=== PATIENT | male | born 1940 | race American Indian/Alaskan Native ===

== ENCOUNTER 2018-04-06 08:26 | Inpatient (IN) | payer MEDICARE ==
--- NOTE | 2018-04-03 19:23 | HP ---
HISTORY AND PHYSICAL: DATE OF ADMISSION: 04/06/18 PROVIDER: Dr. Lashell Caballero.* (DICTATED BY ALVIN NEFF) CHIEF COMPLAINT: Right knee osteoarthritis. HISTORY OF PRESENT ILLNESS: Mr. Mora is an 78-year-old gentleman who has had right knee pain over many years. It has become more chronic and severe over the past 5 to 10 years. He has swelling of the right knee and instability of the right knee. Kneeling and bending cause increased pain. He has attempted treatment with antiinflammatories, physical therapy and intraarticular injections without relief. He would like to undergo a right total knee arthroplasty, scheduled tentatively on 04/06/18. PAST MEDICAL HISTORY: 1. Hypertension. 2. Heart disease. 3. DVT in 2006 of his right leg after a knee scope and cyst removal in [place]. 4. Phlebitis. 5. Non-Hodgkin's lymphoma. 6. Bladder cancer. 7. Hypercholesterolemia. 8. Gout. 9. Osteoarthritis. 10. Type 2 diabetes. 11. Spinal stenosis. 12. Vertigo. 13. Peripheral vascular disease. 14. Carotid artery disease. 15. Coronary artery disease. 16. Anemia. 17. Sleep apnea. PAST SURGICAL HISTORY: 1. CABG in 2009. 2. Lymph node resection of the right groin. 3. Lumbar spine surgery, fused vertebrae L4, L5. 4. Right knee arthroscopy. 5. Left knee arthroscopy. 6. Left total knee arthroplasty. 7. Right toe MTP joint replacement. MEDICATIONS: 1. Nadolol 20 mg. 2. Vitamin E 200 units. 3. Tylenol 3. 4. Metronidazole 1%. 5. Coenzyme Q10. 6. Fish oil. 7. Finasteride 5 mg. 8. Flaxseed oil. 9. Glimepiride 4 mg. 10. Hydroxyzine 25 mg. 11. Ilevro 0.3% eye drops. 12. Invokana 100 mg. 13. Loratadine 10 mg. 14. Nitrostat 0.4 mg. 15. Crestor 10 mg. 16. Aspirin enteric-coated 81 mg. 17. Multi daily vitamins. 18. Senna laxative. 19. Torsemide 10 mg. 20. Vitamin C 1000 mg. 21. Vitamin D high potency 1000 units. 22. Coumadin 3 mg. 23. Victoza 18 mg/3 mL. 24. Meclizine 25 mg. 25. Metformin 500 mg. 26. [place]-3 1000 mg. 27. Vitamin B complex. 28. Clindamycin 150 mg before dentist appointments. 29. Lantus SoloSTAR 100 units/1 mL. 30. Ondansetron 4 mg. 31. Rosuvastatin calcium 10 mg. ALLERGIES: 1. STATINS. 2. PENICILLIN causing a rash. 3. CRESTOR. 4. LIPITOR. 5. ZOCOR. 6. SHELLFISH DERIVED PRODUCTS. 7. IODINE. 8. HYDROCODONE. 9. ERYTHROMYCIN. 10. ACTOS. 11. COMPAZINE. 12. PHENERGAN. 13. TRICOR. 14. ZETIA. FAMILY HISTORY: 1. Diabetes. 2. Heart disease. 3. Hypertension. 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 He lives alone. He does not smoke, drink or utilize recreational drugs. He enjoys walking. He utilizes a cane or rolling walker to walk. He is right- hand dominant. REVIEW OF SYSTEMS: General: The patient denies any fevers, chills or night sweats. No known anesthesia problems. HEENT: The patient denies any headaches , lightheadedness or syncopal episodes. Cardiothoracic: The patient denies any chest pain, heart palpitations or edema. Pulmonary: The patient denies any shortness of breath with exertion, chronic cough. GI: The patient denies any nausea, vomiting, constipation or diarrhea. : The patient denies any nocturia, urinary frequency or urgency. MSK: The patient denies any chronic or intermittent back pain or fractures. Neuro: The patient denies any epilepsy , history of seizure or stroke. The patient admits to numbness and tingling in the fingertips and numbness and tingling of his whole foot bilaterally. Integument: The patient denies any abrasions, lesions, rashes or open sores. PHYSICAL EXAMINATION GENERAL: Alert and oriented x3, appropriate mood and affect, appropriate dress and hygiene, antalgic gait, no acute distress. HEENT: Normocephalic, atraumatic. Hearing and vision are grossly intact. PULMONARY: Lungs are clear to auscultation bilaterally with no wheezes, rales or rhonchi. CARDIO: Regular rate and rhythm. Normal S1 and S2. No appreciable S3 or S4. No murmurs, rubs, or gallops. MSK: Right lower extremity, the patient's skin is intact. No abrasions or open wounds. No palpable masses or lymph nodes. He has moderate effusion about the knee joint. He has varus deformity. Range of motion was about 5 degrees to 100 degrees of flexion with significant patellofemoral crepitus. He has no varus or valgus instability or pain with stressing. He does have tenderness to palpation along the medial and lateral joint line. 5/5 ankle dorsiflexion and plantarflexion strength. Full sensation intact distally with 2 + dorsalis pedis pulse. IMPRESSION: Right knee osteoarthritis. PLAN: To the OR for a right total knee arthroplasty on 04/06/18. The patient will return 10 to 14 days postoperatively for suture removal. He will stop his aspirin 5 days prior and he will be bridged with Lovenox per his primary care and Cardiology. He will resume the day after surgery. ALVIN NEFF [id number]/[facility] #: [id number] ALESSANDRA
[~2018-04-06 08:26] MED LIST: Buffered Lidocaine 0.9% SYRIN* 5 ML/SYR SYRINGE INTRADERM ONE
[2018-04-06] MEDS ORDERED: Clindamycin 900 MG IVPREMIX(* 900 MG/50 ML SDV IV ONE (08:27)
[2018-04-06 09:40] LABS: INR 1.13 (0.77-1.02)
[2018-04-06] MEDS ORDERED: fentaNYL* 50 MCG/ML 2 ML VIAL (100 MCG VIAL) ONE ×5 (09:55→15:56)
[2018-04-06] MEDS ORDERED: Midazolam* 1 MG/ML 2 ML VIAL (2 MG) ONE (09:55)
[2018-04-06] MEDS ORDERED: Bupivacaine 0.25% SDV PF* 10 ML VIAL INJ ONE (10:11)
[2018-04-06] MEDS ORDERED: ROPIVACAINE 5 MG/ML 30 ML BTL (0.5%) ONE (10:45)
[2018-04-06] MEDS ORDERED: Propofol* 10 MG/ML 20 ML BTL IV PUSH ONE (12:08)
[2018-04-06] MEDS ORDERED: Cisatracurium* 2 MG/ML MDV 5 ML ONE (12:08)
[2018-04-06] MEDS ORDERED: Famotidine IV* 10 MG/ML 2 ML (20 mg) ONE (12:08)
[2018-04-06] MEDS ORDERED: Dexamethasone IV* 4 MG/ML 1 ML (4 MG) ONE (12:08)
[2018-04-06] MEDS ORDERED: Ondansetron INJ* 2 MG/ML VIAL ONE (12:08)
[2018-04-06] MEDS ORDERED: Scopolamine 1.5 mg* PATCH TRANSDERM PRN (12:27)
[2018-04-06] MEDS ORDERED: Naloxone* 0.4 MG/ML 1 ML VIAL IV PRN (12:27)
[2018-04-06] MEDS ORDERED: Metoclopramide IV* 5 MG/ML 2 ML VIAL IV PRN (12:27)
[2018-04-06] MEDS ORDERED: Acetaminophen IV 1GM/100ML * 1,000 MG/100 ML VIAL IVPB ONE (12:27)
[2018-04-06] MEDS ORDERED: Nalbuphine* 10 MG/ML 1 ML VIAL IV PRN (12:27)
[2018-04-06] MEDS ORDERED: Ondansetron INJ* 2 MG/ML VIAL IV PRN (12:27)
[2018-04-06] MEDS ORDERED: diPHENhydraMINE IV* 50 MG/ML 1 ml VIAL (BENADRYL) IV PRN ×2 (12:27→14:44)
[2018-04-06] MEDS ORDERED: DiMENhydriNATE IV* 50 MG/ML VIAL IV PUSH PRN (12:27)
[2018-04-06] MEDS ORDERED: Acetaminophen IV 1GM/100ML * 100 ML ONE (14:15)
[2018-04-06] MEDS ORDERED: Magnesium Hydroxide LIQ* 30 ML UDC PO PRN (14:44)
[2018-04-06] MEDS ORDERED: Polyethylene Glycol 3350* 17 GM PACKET PO PRN (14:44)
[2018-04-06] MEDS ORDERED: Bisacodyl SUPP* 10 MG SUPP PR PRN (14:44)
[2018-04-06] MEDS ORDERED: Morphine INJ* 2 MG/ML 1 ML CARPUJECT IV PRN (14:44)
[2018-04-06] MEDS ORDERED: Ondansetron TAB* 4 MG PO PRN (14:44)
[2018-04-06] MEDS ORDERED: Nitroglycerin TAB 0.4 MG* 0.4 MG TAB SL PRN (14:49)
[2018-04-06] MEDS ORDERED: Meclizine TAB* 12.5 MG PO PRN (14:49)
[2018-04-06] MEDS: fentaNYL* 50 MCG/ML 2 ML VIAL (100 MCG VIAL) IV PRN ×8 (15:01→16:26)
[2018-04-06] MEDS ORDERED: oxyCODONE TAB* 5 MG TAB ONE (15:17)
[2018-04-06] MEDS: oxyCODONE TAB* 5 MG TAB PO PRN ×2 (15:18→20:28)
--- NOTE | 2018-04-06 15:43 | RAD ---
Indication: Left knee arthroplasty 2 views of left knee demonstrates bipolar left knee arthroplasty in satisfactory position. IMPRESSION: Left knee bipolar arthroplasty in satisfactory position
[2018-04-06] MEDS ORDERED: Canagliflozin (NF) 100 MG TAB PO SCH (16:30)
[2018-04-06] MEDS ORDERED: Morphine VIAL* 10 MG/ML 1 ML VIAL ONE (16:43)
[2018-04-06] MEDS ORDERED: Warfarin TAB(*) 6 MG PO ONE (17:00)
[2018-04-06] MEDS ORDERED: Morphine VIAL* 4 MG/ML VIAL (1 ml vial) IV PRN (18:06)
[2018-04-06] MEDS ORDERED: oxyCODONE/Acetamin 5/325 MG* TAB ONE (18:10)
[2018-04-06] MEDS: oxyCODONE/Acetamin 5/325 MG* TAB PO PRN ×2 (18:17→22:18)
[2018-04-06] MEDS: Cetirizine* 10 MG TAB PO SCH (18:33)
[2018-04-06] MEDS: Nadolol TAB* 40 MG PO SCH (20:10)
[2018-04-06] MEDS: Clindamycin 600 MG IVPREMIX(* 600 MG/50 ML SDV IV SCH (20:14)
[2018-04-06] MEDS: Docusate CAP* 100 MG PO SCH (20:28)
[2018-04-06] MEDS: Cyclobenzaprine TAB* 10 MG PO PRN (20:30)
[2018-04-06] MEDS: Magnesium Hydroxide LIQ* 30 ML UDC PO SCH (20:33)
[2018-04-06] MEDS: Insulin GLARGINE(*) 1 UNITS UNIT SUBCUT SCH (20:34)
[2018-04-06] MEDS ORDERED: Glimepiride (NF) 2 MG TAB PO SCH (21:00)
[2018-04-06] MEDS ORDERED: metFORMIN* 500 MG TAB PO SCH (21:00)
--- NOTE | 2018-04-06 21:07 | CONS ---
[facility] MEDICINE CONSULTATION REPORT: DATE OF CONSULTATION: 04/06/18 ATTENDING PHYSICIAN: Lashell Caballero MD CONSULTING PHYSICIAN: Tim Haile MD * (dictation provided by Trinh Paige NP) REASON FOR CONSULTATION: Medical comanagement in the patient admitted for right total knee replacement. HISTORY OF PRESENT ILLNESS: Mr. Mora is an 78-year-old male with a past medical history of coronary artery disease with CABG and stenting, cardiomyopathy, anemia with history of lymphoma, and bladder cancer who presents today to the hospital for a planned right total knee arthroplasty. Mr. Mora states that he was feeling his normal state of health before he came in to surgery today. He denies any recent chest pain, shortness of breath , nausea, vomiting, diarrhea, abdominal pain. He states that he is not very active, but his activity is limited by orthopedic pain and not chest pain. He was evaluated preoperatively by Pulmonology, Cardiology, and his primary care provider and all deemed him appropriate to proceed for surgery. The patient has been attempting to medically manage his chronic right knee pain, but when this was unsuccessful, he has now decided to go for operative intervention with Dr. Caballero today. PAST MEDICAL HISTORY: 1. Hypertension. 2. Coronary artery disease with CABG and stent placement. 3. History of DVT in 2006 of the right leg after a knee arthroscopy and cyst removal, chronically on Coumadin therapy. 4. Non-Hodgkin's lymphoma. 5. Bladder cancer. 6. Hypercholesterolemia. 7. Gout. 8. Arthritis. 9. Type 2 diabetes. 10. Spinal stenosis. 11. Vertigo. 12. Peripheral vascular disease. 13. Carotid artery disease. 14. Anemia. 15. Sleep apnea. PAST SURGICAL HISTORY: 1. CABG in 2009. 2. Lymph node resection of the right groin. 3. Lumbar spine surgery with fused vertebrae L4-L5. 4. Right knee arthroscopy. 5. Left knee arthroscopy. 6. Left total knee arthroplasty. 7. Right toe MTP joint replacement. MEDICATIONS: 1. Metronidazole 1 application topically daily. 2. Metformin 500 mg p.o. b.i.d. 3. Warfarin 4.5 mg p.o. daily. 4. Vitamin E cap 200 units p.o. q.p.m. 5. Vitamin B complex 1 cap p.o. q.p.m. 6. Coenzyme Q10 of 100 mg p.o. q.p.m. 7. Torsemide 10 mg p.o. q.a.m. 8. Senna 8.6 mg p.o. q.a.m. 9. Rosuvastatin 10 mg p.o. Tuesday, Tuesday, Tuesday. 10. Ondansetron 4 mg p.o. q.6 hours p.r.n. 11. [place]-3 fatty acid 1 cap p.o. q.p.m. 12. Nitroglycerin p.r.n. 13. Nadolol 20 mg p.o. q.p.m. 14. Multivitamin 1 cap p.o. q.a.m. 15. Meclizine 25 mg p.o. q.8 hours p.r.n. 16. Loratadine 10 mg p.o. q.p.m. 17. Victoza 1.8 mg subcutaneously q.a.m. 18. Lantus insulin 15 units subcutaneously at bedtime. 19. Glimepiride 4 mg p.o. b.i.d. 20. Flaxseed oil 1 cap p.o. q.p.m. 21. Finasteride 5 mg p.o. q.a.m. 22. Clindamycin 150 mg p.o. daily p.r.n. 23. Cholecalciferol vitamin 1000 units p.o. q.p.m. 24. Invokana 100 mg p.o. q.a.c. 25. Aspirin 1 tab p.o. at bedtime 81 mg. 26. Ascorbic acid 1000 mg p.o. q.a.m. 27. Tylenol with Codeine 1 tab p.o. q.6 hours p.r.n. ALLERGIES: To PENICILLINS, COMPAZINE, LIPITOR, ERYTHROMYCIN, IODINE, PIOGLITAZONE, PROMETHAZINE, SHELLFISH, ZETIA, FENOFIBRATE, HYDROCODONE, SIMVASTATIN, and CONTRAST DYE. FAMILY HISTORY: There is report of diabetes, heart disease, and hypertension. SOCIAL HISTORY: The patient lives alone. He states his son, Faizan, would be his healthcare proxy. There is no report of alcohol, tobacco, or drug use. REVIEW OF SYSTEMS: A 14-point review of systems was completed with Mr. Mora and all those not mentioned above were negative. PHYSICAL EXAMINATION: Vitals: Temperature 97.0, pulse rate 66, respiratory rate 14, O2 saturation 99% on room air, blood pressure 167/86. General: Mr. Mora is lying in the bed in no acute distress in the postanesthesia care unit. Neuro: He is alert. He is oriented x3. He moves all extremities equally. There is no facial asymmetry or focal weakness. Extraocular movements are intact. Heart: S1, S2. No murmur, rub, or gallop and regular. Lungs are clear to auscultation bilaterally with no accessory muscle use and good aeration. The abdomen is soft and nontender with bowel sounds positive x3. Extremities: No cyanosis or edema. Skin is intact. Right knee incision not assessed in the immediate postoperative period. LABORATORY DATA: On 03/24/18, WBC 5.4, hemoglobin 14.6, hematocrit 44, platelet count 270,000. Sodium 136, potassium 4.0, chloride 105, serum bicarbonate 25, BUN 18, creatinine 1.10, glucose 98. ASSESSMENT: Mr. Mora is an 78-year-old male with a past medical history of coronary artery disease with CABG and stent placement, history of non-Hodgkin's lymphoma, and [id number] diabetes as well as right lower extremity deep venous thrombosis, on chronic Coumadin therapy, who presents today to the hospital for a planned right total knee arthroplasty with Dr. Caballero. RECOMMENDATIONS: As follows: 1. Postop day #0 status post right total knee arthroplasty: Management will continue to be per orthopedic services. The patient will have pain medication p.r.n. with a bowel regimen. He will have physical and occupational therapy. We will monitor H and H closely. 2. History of deep venous thrombosis, on chronic warfarin therapy. Patient's prior DVT was provoked in the setting of a prior R knee procedure. The patient was recommended to have lovenox 40mg sq daily for DVT prophylaxis per his primary care physician, Dr. Pelayo, and then transitioned back over to warfarin. 3. Type 2 diabetes. Plan to hold metformin, glimepiride, and Victoza. The patient will continue on his home Lantus at 15 units at bedtime. We will adjust as needed once he is taking oral intake regularly. We will check blood glucoses q.a.c. 4. Hypertension. Continue nadolol. Continue torsemide. This patient's blood pressure has been running 170s systolically postoperatively thus far. 5. Hypercholesterolemia. The patient will have rosuvastatin held as it is non- formulary. 6. DVT prophylaxis with Lovenox and warfarin. We will review dosing with orthopedic services. 7. Code status is full code. 8. Disposition is short-stay surgical. TIME SPENT: Approximately 60 minutes were spent in the consultation of this patient with more than half the time was spent with the patient at the bedside reviewing the events leading up to this hospitalization, performing the physical examination, and reviewing my plan of care. TRINH PAIGE NP [id number]/[facility] #: [id number] ALESSANDRA
[2018-04-07] MEDS: oxyCODONE TAB* 5 MG TAB PO PRN ×4 (00:47→23:12)
[2018-04-07] MEDS: oxyCODONE/Acetamin 5/325 MG* TAB PO PRN ×2 (04:31→08:36)
[2018-04-07] MEDS: Clindamycin 600 MG IVPREMIX(* 600 MG/50 ML SDV IV SCH ×2 (04:34→12:06)
--- NOTE | 2018-04-07 04:47 | OP ---
DATE OF OPERATION: 04/06/18 - ROOM #348 DATE OF : 36 SURGEON: Lashell Caballero MD FOREMAN/PILE DRIVING AND ERECTION: ALVIN Rivas. Ms. Hawley did help throughout the procedure with preparation of the leg, wound retraction, manipulation of the knee, and wound closure. ANESTHESIOLOGIST: Dr. Stanton. ANESTHESIA: General. PRE-OP DIAGNOSIS: Severe end-stage degenerative osteoarthritis of the right knee joint. POST-OP DIAGNOSIS: Severe end-stage degenerative osteoarthritis of the right knee joint. OPERATIVE PROCEDURE: Right total knee arthroplasty. TOURNIQUET TIME: 59 minutes. COMPLICATIONS: None. SPECIMENS: Bone and cartilage of the right knee joint sent to Pathology. HARDWARE USED: This is [employer] cemented total knee arthroplasty hardware. For the femur, a right size 7 posterior stabilized Legion femoral component. For the tibia, a size 6 Sivan II right tibial base plate. For the insert, a 9 mm posterior stabilized articular insert Sivan II size 5/6 and for the patella, a 35 mm 3-peg all poly patella with 7.5 thickness. Two packages of Simplex bone cement were used. BRIEF HISTORY/INDICATIONS: Mr. Mora is an 78-year-old gentleman with years of increasingly severe right knee pain and stiffness. He failed conservative treatment with anti-inflammatories, pain medication, intra-articular injections and physical therapy. Due to continued pain and decreased quality of life, he elected to undergo right total knee arthroplasty. Informed consent was obtained from the patient. He understood the risks of surgery included, but were not limited to bleeding, infection, damage to nearby structures, continued pain, need for further surgery, intraoperative fracture, nerve palsy, hardware failure or loosening, knee stiffness, loss of motion, stroke, heart attack, blood clot, and . He wished to proceed. INTRAOPERATIVE FINDINGS: Intraoperatively, the patient was noted to have flexion contracture at 25 degrees. He had severe end-stage arthritis with extreme deformation and loss of bone along the proximal tibia. He had extensive osteophyte formation with tricompartmental full thickness cartilage. DESCRIPTION OF PROCEDURE: Mr. Mora was identified in the preanesthesia unit. His right side was marked as the correct operative side. Informed consent was signed and placed in the chart. The patient was taken to the operating room and placed under general anesthesia. A Loomis catheter was placed. Right lower extremity was prepped and draped in the usual sterile fashion. Preop time-out was made to correctly identify the patient's side and site. Appropriate preoperative antibiotics were given within 1 hour of incision. Tourniquet was inflated and total tourniquet time for this procedure was 59 minutes. A midline incision was made with a 10 blade and carried down to the extensor mechanism. A new 10-blade was used to make a standard medial parapatellar arthrotomy. The patella was subluxed laterally. Osteophytes were noted and removed. Electrocautery was used to subperiosteally elevate soft tissue off the superomedial tibia to the mid sagittal plane. There was a significant amount of contracture along the medial tibial plateau and this was carefully released with electrocautery. There was extensive osteophyte formation, which was removed with rongeur. The knee was flexed up. The anterior horn of the lateral meniscus was released. There was no ACL. A drill was used to enter the distal femur. Intramedullary distal femoral cutting guide was pinned on the distal femur. An extra 2 mm of bone was removed using the oscillating saw. This was due to the severe flexion contracture to increase the extension space. Next, the external rotation guide was pinned on the distal femur. The distal femur was sized to a size 7. Size 7 multi-cutting jig was pinned on the distal femur. Oscillating saw was used to make the appropriate 4 chamfer cuts. The bone was carefully removed. The PCL was completely released and the tibia was subluxed anteriorly. Extramedullary tibial cutting guide was pinned on the proximal tibia. A 9 mm of proximal tibial bone was carefully removed using an oscillating saw. The bone was carefully removed. The knee was brought out into full extension. The knee was tight in extension. A large amount of capsular release was performed using electrocautery along the posterior capsule and medial compartment. Knee extension was improved. The knee was flexed up. The laminar film technician was placed both medially and laterally. Any remaining meniscus was carefully removed using electrocautery. Any remaining PCL was removed using electro- cautery. Posterior osteophytes were removed using a curved osteotome and curette. Tibial tray and drop helene were placed and confirmed a satisfactory tibial cut. The flexion and extension gaps were well balanced. The knee was once again brought out into full extension. A Spacer block fit with the knee in full extension. The medial and lateral ligaments were well balanced. A size 7 right femoral trial was impacted onto the distal femur and had good fit. The box for the posterior stabilized implant was prepared using a reamer and box cut osteotome. A size 6 tibial tray trial with a 9 mm insert trial was placed and the knee was taken through a range of motion. The knee had full extension to 130 degrees of flexion with satisfactory patellofemoral tracking. The patella was everted. An 8 mm of patellar bone and cartilage was carefully removed using an oscillating saw. Patella was sized to a size 35. Three peg holes were drilled through the size 35 guide. A 35 trial patella with 7.5 thickness was chosen and the knee was taken through a range of motion. There was satisfactory patellofemoral tracking. All trials were carefully removed. The tibia was subluxed anteriorly and sized to a size 6. Proximal tibia was prepared using a size 6 keel punch. All bony cut surfaces were copiously irrigated with sterile saline and dried. Final implants were cemented into place starting with the tibia followed by the femur and last the patella. A 9-mm insert trial was placed while the knee was brought out into full extension. Tourniquet was turned down at 59 minutes. The knee was copiously irrigated with sterile saline. Electrocautery was used to obtain meticulous hemostasis. Once the cement had fully cured, the insert trial was removed. Any excess cement was removed from around the capsule and hardware. Final insert chosen was a 9-mm posterior stabilized articular insert size 5/6. This was locked into position on the tibial tray without difficulty. Stability of the insert was checked and rechecked and noted to be stable. The knee was copiously irrigated with sterile saline. The extensor mechanism was closed using #1 Vicryls. The rest of the incision was closed in a layered fashion using 0 and 2-0 Vicryls. Skin was closed using running 3-0 nylon suture. Sterile Xeroform, 4x4s and Webril were used to cover the incision. Kanu wrap and cold pack were placed over this. The patient's anesthesia was reversed without difficulty. He was taken to the PACU in stable condition. Intended weightbearing will be weightbearing as tolerated. Intended DVT prophylaxis will be Coumadin with a Lovenox bridge. [id number]/[facility] #: [id number] [facility] HOSPITALBiju
[2018-04-07 05:51] LABS: Hematocrit 35 % (42-52); Hemoglobin 11.9 g/dl (14.0-18.0); Platelet Count 216 10^3/ul (150-450)
[2018-04-07 06:05] LABS: EGFR Non-African American 72.7 (>60)
[2018-04-07 07:08] LABS: INR 1.27 (0.77-1.02)
[2018-04-07] MEDS: Docusate CAP* 100 MG PO SCH ×2 (08:36→21:03)
[2018-04-07] MEDS: Torsemide TAB* 20 MG PO SCH (08:37)
[2018-04-07] MEDS: Finasteride TAB* 5 MG PO SCH (08:37)
[2018-04-07] MEDS: Magnesium Hydroxide LIQ* 30 ML UDC PO SCH ×2 (08:38→21:02)
[2018-04-07] MEDS ORDERED: Liraglutide (NF) 18 MG/3 ML SUBCUT SCH (09:00)
--- NOTE | 2018-04-07 09:00 | PN ---
Progress Note - Progress Note Date of Service: 04/07/18 SOAP: Subjective: Pt is doing well. Pain is controlled in knee. He has pain in ankle, hip and back from prior back surgery. Denies calf pain, CP/SOB or F/C. Has RLE edema but has a h/o lymph dissection in right groin. Objective: PE- 78 y/o WDWM NAD A&O x 3 RLE- dressing c/d/i, +DF/PF ankle, calf soft NT, +2 DP pulse, SILT distally Vital Signs Temp Pulse Resp BP Pulse Ox 98.7 F 68 18 112/49 100 04/07/18 07:36 04/07/18 07:36 04/07/18 08:39 04/07/18 07:36 04/07/18 07:36 Laboratory Results - last 24 hr 04/06/18 04/06/18 04/06/18 09:23 09:46 14:59 Hgb Hct Plt Count MPV INR (Anticoag Therapy) 1.13 H Sodium Potassium Chloride Carbon Dioxide Anion Gap BUN Creatinine Est GFR ( Amer) Est GFR (Non-Af Amer) BUN/Creatinine Ratio Glucose POC Glucose (mg/dL) 117 H 140 H Calcium 04/06/18 04/07/18 04/07/18 18:07 05:28 05:28 Hgb 11.9 L Hct 35 L Plt Count 216 MPV 8.0 INR (Anticoag Therapy) Sodium 133 L Potassium 4.6 Chloride 101 Carbon Dioxide 26 Anion Gap 6 BUN 21 Creatinine 0.99 Est GFR ( Amer) 88.0 Est GFR (Non-Af Amer) 72.7 BUN/Creatinine Ratio 21.2 H Glucose 231 H POC Glucose (mg/dL) 171 H Calcium 8.3 L 04/07/18 04/07/18 06:49 07:46 Hgb Hct Plt Count MPV INR (Anticoag Therapy) 1.27 H Sodium Potassium Chloride Carbon Dioxide Anion Gap BUN Creatinine Est GFR ( Amer) Est GFR (Non-Af Amer) BUN/Creatinine Ratio Glucose POC Glucose (mg/dL) 226 H Calcium Assessment: POD 1 S/P Right TKA Plan: WBAT- PT/OT cont lovenox and coumadin- 8 mg tonight Cont pain mgmt DC plan to PMRU Tuesday vs [place] tuesday, tool planner aware
[2018-04-07] MEDS ORDERED: Dextrose 50% Syringe 50 ML* 25 GM/50 ML SYRINGE IV PUSH PRN (09:23)
[2018-04-07] MEDS: Artificial Tears* 15 ML BTL RIGHT EYE PRN ×2 (10:38→21:01)
[2018-04-07] MEDS: Insulin LISPRO* 1 UNITS UNIT SUBCUT SCH ×2 (12:05→18:16)
[2018-04-07] MEDS: Enoxaparin(*) 40 MG/0.4 ML SYR SUBCUT SCH (12:06)
--- NOTE | 2018-04-07 14:29 | PN ---
Subjective Date of Service: 04/07/18 Interval History: Patient states that he ahd been having severe spasming pain in leg from lower back to calf before PT and that after PT he had no pain at rest. Denies CP, SOB , N/V, abdominal pain, F/C, or other pain. States that he gets lightheaded on standing frequently and that it always passes after several seconds. States that Meclizine is prescribed but is unable to say if it helps. Patient has not urinated after his rotiz removal and has not passed flatus. Family History: Unchanged from Admission Social History: Unchanged from Admission Past Medical History: Unchanged from Admission Objective Active Medications: Acetaminophen (Tylenol Tab*) 650 mg PO Q4H PRN PRN Reason: PAIN OR TEMPERATURE Bisacodyl (Dulcolax Supp*) 10 mg [place] DAILY PRN PRN Reason: constipation Cetirizine HCl (Zyrtec*) 10 mg PO QPM [facility] Last Admin: 04/06/18 18:33 Dose: 10 mg Cyclobenzaprine HCl (Flexeril Tab*) 10 mg PO TID PRN PRN Reason: SPASMS Last Admin: 04/06/18 20:30 Dose: 10 mg Dextrose (D50w Syringe 50 Ml*) 12.5 gm IV PUSH .FOR FS < 60 - SS PRN PRN Reason: FS < 60 Diphenhydramine HCl (Benadryl Iv*) 12.5 mg IV Q6H PRN PRN Reason: PRURITIS Docusate Sodium (Colace Cap*) 100 mg PO BID [facility] Last Admin: 04/07/18 08:36 Dose: 100 mg Enoxaparin Sodium (Lovenox(*)) 40 mg SUBCUT Q24H [facility] Last Admin: 04/07/18 12:06 Dose: 40 mg Finasteride (Proscar Tab*) 5 mg PO QAM [facility] Last Admin: 04/07/18 08:37 Dose: 5 mg Lactated Ringer's (Lactated Ringers 1000 Ml Bag*) 1,000 mls @ 100 mls/hr IV PER RATE [facility] Last Admin: 04/07/18 04:34 Dose: 100 mls/hr Insulin Glargine (Lantus(*)) 15 units SUBCUT BEDTIME [facility] Last Admin: 04/06/18 20:34 Dose: 15 units Insulin Human Lispro (Humalog*) 0 units SUBCUT [facility]; Protocol Last Admin: 04/07/18 12:05 Dose: 2 units Lactulose (Lactulose*) 30 ml PO Q6H PRN PRN Reason: constipation Magnesium Hydroxide (Milk Of Magnesia Liq*) 30 ml PO BID [facility] Last Admin: 04/07/18 08:38 Dose: 30 ml Magnesium Hydroxide (Milk Of Magnesia Liq*) 30 ml PO Q6H PRN PRN Reason: constipation Meclizine HCl (Antivert Tab*) 25 mg PO Q8HR PRN PRN Reason: DIZZINESS Morphine Sulfate (Morphine Vial*) 2 mg IV Q2H PRN PRN Reason: PAIN Last Admin: 04/06/18 23:50 Dose: 2 mg Nadolol (Corgard Tab*) 20 mg PO QPM [facility] Last Admin: 04/06/18 20:10 Dose: 20 mg Nitroglycerin (Nitroglycerin Tab 0.4 Mg*) 0.4 mg SL Q5M PRN PRN Reason: ANGINA Ondansetron HCl (Zofran Odt Tab*) 4 mg PO Q6H PRN PRN Reason: NAUSEA Ondansetron HCl (Zofran Tab*) 4 mg PO Q6H PRN PRN Reason: NAUSEA Oxycodone HCl (Roxycodone Tab*) 10 mg PO Q4H PRN PRN Reason: SEVERE PAIN Last Admin: 04/07/18 12:07 Dose: 10 mg Oxycodone/Acetaminophen (Percocet 5/325 Tab*) 2 tab PO Q4H PRN PRN Reason: PAIN Last Admin: 04/07/18 08:36 Dose: 2 tab Oxycodone/Acetaminophen (Percocet 5/325 Tab*) 1 tab PO Q4H PRN PRN Reason: PAIN Polyethylene Glycol/Electrolytes (Miralax*) 17 gm PO DAILY PRN PRN Reason: Constipation Polyvinyl Alcohol (Polyvinyl Alcohol 1.4% Opth*) 1 drop RIGHT EYE Q2H PRN PRN Reason: DRY EYE Last Admin: 04/07/18 10:38 Dose: 1 drop Torsemide (Demadex*) 10 mg PO QAM [facility] Last Admin: 04/07/18 08:37 Dose: 10 mg Warfarin Sodium (Coumadin Tab(*)) 8 mg PO ONCE@1700 ONE; Protocol Stop: 04/07/18 17:01 Vital Signs - 8 hr 04/07/18 04/07/18 04/07/18 07:36 08:00 08:36 Temperature 98.7 F Pulse Rate 68 Respiratory 14 18 18 Rate Blood Pressure 112/49 (mmHg) O2 Sat by Pulse 100 100 Oximetry 04/07/18 04/07/18 04/07/18 08:39 11:35 11:53 Temperature 97.5 F Pulse Rate 62 Respiratory 18 16 18 Rate Blood Pressure 131/56 (mmHg) O2 Sat by Pulse 100 Oximetry 04/07/18 12:07 Temperature Pulse Rate Respiratory 18 Rate Blood Pressure (mmHg) O2 Sat by Pulse Oximetry Oxygen Devices in Use Now: Nasal Cannula Appearance: Patient is an 78yo male who appears stated age and is sitting in the bed in NAD. Eyes: No Scleral Icterus, PERRLA Ears/Nose/Mouth/Throat: NL Teeth, Lips, Gums, Clear Oropharnyx, Mucous Membranes Moist Neck: NL Appearance and Movements; NL JVP, Trachea Midline Respiratory: Symmetrical Chest Expansion and Respiratory Effort, Clear to Auscultation Cardiovascular: NL Sounds; No Murmurs; No JVD, RRR, No Edema Abdominal: NL Sounds; No Tenderness; No Distention, No Hepatosplenomegaly Lymphatic: No Cervical Adenopathy Extremities: No Clubbing, Cyanosis, - - RLE edema. Right knee covered with bulky dressing. Skin: No Nodules or Sclerosis Neurological: Alert and Oriented x 3, NL Sensation, NL Muscle Strength and Tone , - - CN II-XII intact. Result Diagrams: 04/07/18 05:28 04/07/18 05:28 Assess/Plan/Problems-Billing Assessment: Patient is an 78yo male with a PMH for CABG, Bladder CA, Lymphoma, Provoked DVT , DM II, who is S/P RTKA and is doing well. - Patient Problems (1) Post-operative state Current Visit: Yes Status: Acute Code(s): Z98.890 - OTHER SPECIFIED POSTPROCEDURAL STATES SNOMED Code(s): 29815588 Comment: Management per primary team. Pain well controlled. PT/OT. Continue with Bowel regimen. Awaiting spontaneous urination. Monitor H/H. (2) History of bladder cancer Current Visit: Yes Status: Acute Code(s): Z85.51 - PERSONAL HISTORY OF MALIGNANT NEOPLASM OF BLADDER SNOMED Code(s): 038635171 (3) Type II diabetes mellitus Current Visit: No Status: Acute Comment: Home glargine and SSI. Resume home medications at discharge. (4) History of lymphoma Current Visit: Yes Status: Acute Code(s): Z85.79 - PRSNL HX OF MALIG NEOPLM OF LYMPHOID, HEMATPOETC & REL TISS SNOMED Code(s): 303007929 Comment: S/P Inguninal LN dissection. Right LE edema. (5) Vertigo Current Visit: Yes Status: Acute Code(s): R42 - DIZZINESS AND GIDDINESS SNOMED Code(s): 459873724 Comment: Does not describe vertiginous symptoms. Possibly Orthostatic hypotension. Watch closely with position symptoms. (6) PVD (peripheral vascular disease) Current Visit: Yes Status: Acute Code(s): I73.9 - PERIPHERAL VASCULAR DISEASE, UNSPECIFIED SNOMED Code(s): 533694993 Comment: Stable, continue statin and antithrombotics. Good pulse in RLE. (7) CAD (coronary artery disease) Current Visit: No Status: Acute Code(s): I25.10 - ATHSCL HEART DISEASE OF [place] CORONARY ARTERY W/O ANG PCTRS SNOMED Code(s): 69929488 Comment: Stable- no complaints. Continue ASA, crestor, and carvedilol. (8) HTN (hypertension) Current Visit: No Status: Acute Code(s): I10 - ESSENTIAL (PRIMARY) HYPERTENSION SNOMED Code(s): 27851400 Comment: Normotensive. Continue Home medications. (9) DVT prophylaxis Current Visit: No Status: Acute Code(s): BGQ8491 - SNOMED Code(s): 385213636 Comment: Lovenox to Coumadin On Coumadin Chronically (10) Full code status Current Visit: No Status: Acute Code(s): Z78.9 - OTHER SPECIFIED HEALTH STATUS SNOMED Code(s): 797370697 Status and Disposition: Inpatient. Disposition per primary team.
[2018-04-07] MEDS ORDERED: ROSUVASTATIN CALCIUM 10 MG PO SCH (14:49)
[2018-04-07] MEDS: Ondansetron ODT TAB* 4 MG PO PRN ×2 (16:31→23:11)
[2018-04-07] MEDS: Cyclobenzaprine TAB* 10 MG PO PRN (16:45)
[2018-04-07] MEDS ORDERED: Warfarin TAB(*) 4 MG PO ONE (17:00)
[2018-04-07] MEDS: Nadolol TAB* 40 MG PO SCH (18:17)
[2018-04-07] MEDS: Cetirizine* 10 MG TAB PO SCH (18:17)
[2018-04-07] MEDS: Insulin GLARGINE(*) 1 UNITS UNIT SUBCUT SCH (21:03)
[2018-04-07] MEDS: Aspirin EC TAB* 81 MG TAB.EC PO SCH (21:03)
[2018-04-07] MEDS: Acetaminophen TAB* 325 MG PO PRN (21:03)
[2018-04-08] MEDS: Cyclobenzaprine TAB* 10 MG PO PRN ×2 (04:24→12:45)
[2018-04-08 05:30] LABS: Hematocrit 34 % (42-52); Hemoglobin 11.6 g/dl (14.0-18.0); Mean Platelet Volume 8.1 um3 (7.4-10.4); Platelet Count 209 10^3/ul (150-450)
[2018-04-08 05:35] LABS: INR 2.1 (0.77-1.02)
[2018-04-08] MEDS: oxyCODONE/Acetamin 5/325 MG* TAB PO PRN (06:17)
[2018-04-08] MEDS: oxyCODONE TAB* 5 MG TAB PO PRN (09:19)
[2018-04-08] MEDS: Torsemide TAB* 20 MG PO SCH (09:19)
[2018-04-08] MEDS: Docusate CAP* 100 MG PO SCH ×2 (09:20→22:13)
[2018-04-08] MEDS: Finasteride TAB* 5 MG PO SCH (09:20)
[2018-04-08] MEDS: Insulin LISPRO* 1 UNITS UNIT SUBCUT SCH ×3 (09:20→17:44)
[2018-04-08] MEDS: Magnesium Hydroxide LIQ* 30 ML UDC PO SCH ×2 (09:21→21:31)
--- NOTE | 2018-04-08 10:07 | PN ---
Progress Note - Progress Note Date of Service: 04/08/18 SOAP: Subjective: Pt is doing well. He has pain in the kneecap. Denies calf pain, CP/SOB or F/C. Has RLE edema but has a h/o lymph dissection in right groin. Objective: PE- 78 y/o WDWM NAD A&O x 3 RLE- dressing changed today, incision is c/d/i, no erythema or drainage seen, + DF/PF ankle, calf soft NT, +2 DP pulse, SILT distally Vital Signs Temp 98.4 F 04/08/18 07:47 Pulse 68 04/08/18 07:47 Resp 18 04/08/18 09:21 BP 130/58 04/08/18 07:47 Pulse Ox 94 04/08/18 08:00 Intake & Output 04/07/18 04/08/18 04/08/18 18:59 06:59 18:59 Intake Total 1371 240 200 Output Total 275 200 400 Balance 1096 40 -200 Intake: IV Fluids 664 LR 664 IVPB 107 ABX - CLINDAMYCIN 107 Oral 600 240 200 Output: Urine 275 200 400 Other: Estimated Void Small # Voids 1 Assessment: POD 2 S/P Right TKA Plan: WBAT- PT/OT cont coumadin- 2 mg tonight, INR 2.10 Cont pain mgmt DC plan to PMRU Tuesday vs [place] tuesday, shoe lay out planner aware
--- NOTE | 2018-04-08 10:31 | PN ---
Subjective Date of Service: 04/08/18 Interval History: Patient having difficulty moving RLE and has intermittent stabbing pain in RLE kneecap. Denies numbness or tingling in LE. Able to ambulate well with PT. Denies CP, SOB, N/V, abdominal pain, F/C, dysuria. Pain 2/10 at rest but stabbing pain up to 8/10. Urinating without the feeling of incomplete emptying. Passing flatus without BM. Pain in right ribs/back which feels like a muscle ache and pain in R buttock which feels like he is sitting on something uncomfortable. Family History: Unchanged from Admission Social History: Unchanged from Admission Past Medical History: Unchanged from Admission Objective Active Medications: Acetaminophen (Tylenol Tab*) 650 mg PO Q4H PRN PRN Reason: PAIN OR TEMPERATURE Last Admin: 04/07/18 21:03 Dose: 650 mg Aspirin (Aspirin Ec Tab*) 81 mg PO BEDTIME [facility] Last Admin: 04/07/18 21:03 Dose: 81 mg Bisacodyl (Dulcolax Supp*) 10 mg [place] DAILY PRN PRN Reason: constipation Cetirizine HCl (Zyrtec*) 10 mg PO QPM [facility] Last Admin: 04/07/18 18:17 Dose: 10 mg Cyclobenzaprine HCl (Flexeril Tab*) 10 mg PO TID PRN PRN Reason: SPASMS Last Admin: 04/08/18 04:24 Dose: 10 mg Dextrose (D50w Syringe 50 Ml*) 12.5 gm IV PUSH .FOR FS < 60 - SS PRN PRN Reason: FS < 60 Diphenhydramine HCl (Benadryl Iv*) 12.5 mg IV Q6H PRN PRN Reason: PRURITIS Docusate Sodium (Colace Cap*) 100 mg PO BID [facility] Last Admin: 04/08/18 09:20 Dose: 100 mg Enoxaparin Sodium (Lovenox(*)) 40 mg SUBCUT Q24H [facility] Last Admin: 04/07/18 12:06 Dose: 40 mg Finasteride (Proscar Tab*) 5 mg PO QAM [facility] Last Admin: 04/08/18 09:20 Dose: 5 mg Lactated Ringer's (Lactated Ringers 1000 Ml Bag*) 1,000 mls @ 100 mls/hr IV PER RATE [facility] Last Admin: 04/07/18 04:34 Dose: 100 mls/hr Insulin Glargine (Lantus(*)) 15 units SUBCUT BEDTIME [facility] Last Admin: 04/07/18 21:03 Dose: 15 units Insulin Human Lispro (Humalog*) 0 units SUBCUT AC [facility]; Protocol Last Admin: 04/08/18 09:20 Dose: 1 units Lactulose (Lactulose*) 30 ml PO Q6H PRN PRN Reason: constipation Last Admin: 04/08/18 04:24 Dose: 30 ml Magnesium Hydroxide (Milk Of Magnesia Liq*) 30 ml PO BID [facility] Last Admin: 04/08/18 09:21 Dose: 30 ml Magnesium Hydroxide (Milk Of Magnesia Liq*) 30 ml PO Q6H PRN PRN Reason: constipation Meclizine HCl (Antivert Tab*) 25 mg PO Q8HR PRN PRN Reason: DIZZINESS Morphine Sulfate (Morphine Vial*) 2 mg IV Q2H PRN PRN Reason: PAIN Last Admin: 04/06/18 23:50 Dose: 2 mg Nadolol (Corgard Tab*) 20 mg PO QPM [facility] Last Admin: 04/07/18 18:17 Dose: 20 mg Nitroglycerin (Nitroglycerin Tab 0.4 Mg*) 0.4 mg SL Q5M PRN PRN Reason: ANGINA Ondansetron HCl (Zofran Odt Tab*) 4 mg PO Q6H PRN PRN Reason: NAUSEA Last Admin: 04/07/18 23:11 Dose: 4 mg Ondansetron HCl (Zofran Tab*) 4 mg PO Q6H PRN PRN Reason: NAUSEA Oxycodone HCl (Roxycodone Tab*) 10 mg PO Q4H PRN PRN Reason: SEVERE PAIN Last Admin: 04/08/18 09:19 Dose: 5 mg Oxycodone/Acetaminophen (Percocet 5/325 Tab*) 2 tab PO Q4H PRN PRN Reason: PAIN Last Admin: 04/08/18 06:17 Dose: 2 tab Oxycodone/Acetaminophen (Percocet 5/325 Tab*) 1 tab PO Q4H PRN PRN Reason: PAIN Polyethylene Glycol/Electrolytes (Miralax*) 17 gm PO DAILY PRN PRN Reason: Constipation Polyvinyl Alcohol (Polyvinyl Alcohol 1.4% Opth*) 1 drop RIGHT EYE Q2H PRN PRN Reason: DRY EYE Last Admin: 04/07/18 21:01 Dose: 1 drop Torsemide (Demadex*) 10 mg PO QAM [facility] Last Admin: 04/08/18 09:19 Dose: 10 mg Warfarin Sodium (Coumadin Tab(*)) 2 mg PO ONCE@1700 NR; Protocol Stop: 04/08/18 23:59 Vital Signs - 8 hr 04/08/18 04/08/18 04/08/18 04:24 06:17 07:47 Temperature 98.4 F Pulse Rate 68 Respiratory 16 16 16 Rate Blood Pressure 130/58 (mmHg) O2 Sat by Pulse 94 Oximetry 04/08/18 04/08/18 04/08/18 08:00 09:19 09:21 Temperature Pulse Rate Respiratory 18 18 18 Rate Blood Pressure (mmHg) O2 Sat by Pulse 94 Oximetry Oxygen Devices in Use Now: None Appearance: Patient is an 78y male who appears stated age and is sitting in the bed in [facility]. Eyes: No Scleral Icterus, PERRLA Ears/Nose/Mouth/Throat: NL Teeth, Lips, Gums, Clear Oropharnyx, Mucous Membranes Moist Neck: NL Appearance and Movements; NL JVP, Trachea Midline Respiratory: Symmetrical Chest Expansion and Respiratory Effort, Clear to Auscultation Cardiovascular: NL Sounds; No Murmurs; No JVD, RRR, - - 1+ edema in RLE. Abdominal: NL Sounds; No Tenderness; No Distention, No Hepatosplenomegaly Lymphatic: No Cervical Adenopathy Extremities: No Clubbing, Cyanosis Skin: No Nodules or Sclerosis, - - Right Knee incision covered with bulky dressing. Neurological: Alert and Oriented x 3, NL Sensation, NL Muscle Strength and Tone , - - CN II-XII intact. Result Diagrams: 04/08/18 05:10 04/07/18 05:28 Assess/Plan/Problems-Billing Assessment: Patient is an 78yo male with a PMH for CABG, Bladder CA, Lymphoma, Provoked DVT , DM II, who is S/P RTKA and is doing well. - Patient Problems (1) Post-operative state Current Visit: Yes Status: Acute Code(s): Z98.890 - OTHER SPECIFIED POSTPROCEDURAL STATES SNOMED Code(s): 58465984 Comment: Management per primary team. Pain well controlled. PT/OT. Continue with Bowel regimen. Awaiting spontaneous urination. Monitor H/H. (2) History of bladder cancer Current Visit: Yes Status: Acute Code(s): Z85.51 - PERSONAL HISTORY OF MALIGNANT NEOPLASM OF BLADDER SNOMED Code(s): 872765773 (3) Type II diabetes mellitus Current Visit: No Status: Acute Comment: Home glargine and SSI. Resume home medications at discharge. (4) History of lymphoma Current Visit: Yes Status: Acute Code(s): Z85.79 - PRSNL HX OF MALIG NEOPLM OF LYMPHOID, HEMATPOETC & REL TISS SNOMED Code(s): 313867724 Comment: S/P Inguninal LN dissection. Right LE edema. Stable, No Calf tenderness. (5) Vertigo Current Visit: Yes Status: Acute Code(s): R42 - DIZZINESS AND GIDDINESS SNOMED Code(s): 179621637 Comment: Does not describe vertiginous symptoms. Possibly Orthostatic hypotension. Watch closely with position symptoms. Orthostatic VS pending. (6) PVD (peripheral vascular disease) Current Visit: Yes Status: Acute Code(s): I73.9 - PERIPHERAL VASCULAR DISEASE, UNSPECIFIED SNOMED Code(s): 720599921 Comment: Stable, continue statin and antithrombotics. Good pulse in RLE. (7) CAD (coronary artery disease) Current Visit: No Status: Acute Code(s): I25.10 - ATHSCL HEART DISEASE OF [place] CORONARY ARTERY W/O ANG PCTRS SNOMED Code(s): 72899403 Comment: Stable- no complaints. Continue ASA, crestor, and carvedilol. (8) HTN (hypertension) Current Visit: No Status: Acute Code(s): I10 - ESSENTIAL (PRIMARY) HYPERTENSION SNOMED Code(s): 19049610 Comment: Normotensive. Continue Home medications. (9) DVT prophylaxis Current Visit: No Status: Acute Code(s): WCE2232 - SNOMED Code(s): 339474538 Comment: Lovenox to Coumadin On Coumadin Chronically (10) Full code status Current Visit: No Status: Acute Code(s): Z78.9 - OTHER SPECIFIED HEALTH STATUS SNOMED Code(s): 718106754 Status and Disposition: Inpatient. Disposition per primary team.
[2018-04-08] MEDS: Enoxaparin(*) 40 MG/0.4 ML SYR SUBCUT SCH (12:07)
[2018-04-08] MEDS ORDERED: Warfarin TAB(*) 2 MG PO ONE (17:00)
[2018-04-08] MEDS: Nadolol TAB* 40 MG PO SCH (17:43)
[2018-04-08] MEDS: Cetirizine* 10 MG TAB PO SCH (17:51)
[2018-04-08] MEDS: Aspirin EC TAB* 81 MG TAB.EC PO SCH (22:13)
[2018-04-08] MEDS: Insulin GLARGINE(*) 1 UNITS UNIT SUBCUT SCH (22:13)
[2018-04-09] MEDS: Acetaminophen TAB* 325 MG PO PRN (00:17)
[2018-04-09] MEDS ORDERED: Magnesium Hydroxide LIQ* 30 ML UDC PO PRN (02:00)
[2018-04-09] MEDS: oxyCODONE/Acetamin 5/325 MG* TAB PO PRN ×3 (04:20→13:15)
[2018-04-09 05:49] LABS: Hematocrit 31 % (42-52); Hemoglobin 10.7 g/dl (14.0-18.0); Mean Platelet Volume 8.1 um3 (7.4-10.4); Platelet Count 206 10^3/ul (150-450)
[2018-04-09 05:55] LABS: INR 2.99 (0.77-1.02)
[2018-04-09] MEDS: Insulin LISPRO* 1 UNITS UNIT SUBCUT SCH ×2 (07:32→12:16)
[2018-04-09] MEDS: Torsemide TAB* 20 MG PO SCH (08:47)
[2018-04-09] MEDS: Finasteride TAB* 5 MG PO SCH (08:47)
[2018-04-09] MEDS: Docusate CAP* 100 MG PO SCH (08:48)
--- NOTE | 2018-04-09 09:28 | PN ---
Progress Note - Progress Note Date of Service: 04/09/18 SOAP: Subjective Pt is doing well. He states that the pain in his kneecap has improved. He has some tightness in the back of his thigh. Denies calf pain, CP/SOB or F/C. Has RLE edema but has a h/o lymph dissection in right groin. Objective: PE- 78 y/o WDWM NAD A&O x 3 RLE- dressing is c/d/i, +DF/PF ankle, calf soft NT, +2 DP pulse, SILT distally Vital Signs Temp 97.2 F 04/09/18 07:16 Pulse 54 04/09/18 07:16 Resp 20 04/09/18 08:57 BP 120/55 04/09/18 07:16 Pulse Ox 98 04/09/18 07:16 Intake & Output 04/08/18 04/09/18 04/09/18 18:59 06:59 18:59 Intake Total 640 360 Output Total 750 450 Balance -110 -90 Intake: Oral 640 360 Output: Urine 750 450 Other: Estimated Void Small # Bowel Movements 1 Estimated Stool Amount Large # Voids 1 Assessment: POD 3 S/P Right TKA Plan: WBAT- PT/OT coumadin- hold tonight, INR 2.99 Cont pain mgmt DC plan to PMRU Tuesday vs [place] tuesday, cyber policy and strategy planner aware
[2018-04-09] MEDS: Enoxaparin(*) 40 MG/0.4 ML SYR SUBCUT SCH (12:16)
[2018-04-09] MEDS ORDERED: Scopolamine PATCH Remove* 1 NOTE MISC PATCH OFF ONE (12:29)
[2018-04-09 15:47] VITALS: BP 123/51
--- NOTE | 2018-04-29 14:45 | DS ---
CC: Dr. Cooper Pelayo; Dr. Tim Haile; Dr. Lashell Caballero * DISCHARGE SUMMARY: DATE OF ADMISSION: 04/06/18 DATE OF DISCHARGE: 04/09/18 PRIMARY CARE PROVIDER: Dr. Cooper Pelayo. MY ATTENDING WHILE IN THE HOSPITAL: Dr. Tim Haile.* (DICTATED BY ALVIN AGUILAR) ATTENDING ORTHOPEDIST: Dr. Lashell Caballero. PRIMARY DISCHARGE DIAGNOSIS: Status post right total knee arthroplasty. SECONDARY DISCHARGE DIAGNOSES: 1. Hypertension. 2. Coronary artery disease, status post coronary artery bypass graft with stent placement. 3. History of provoked deep venous thrombosis. 4. Non-Hodgkin's lymphoma. 5. Bladder cancer. 6. Hypercholesterolemia. 7. Gout. 8. Arthritis. 9. Type 2 diabetes. 10. Spinal stenosis. 11. Vertigo. 12. Peripheral vascular disease. 13. Carotid artery disease. 14. Anemia. 15. Sleep apnea. STUDIES DONE WHILE IN HOSPITAL: Knee x-ray from 04/06/18 read as right knee bipolar arthroplasty in satisfactory position. MEDICATIONS AT DISCHARGE: 1. Crestor 10 mg p.o. Tuesday, Tuesday, and Tuesday. 2. Senna 8.6 mg p.o. q.a.m. 3. Fish oil 1 cap p.o. q.p.m. 4. Multivitamin 1 cap p.o. q.a.m. 5. Metformin 500 mg p.o. b.i.d. 6. Flaxseed 1 cap p.o. q.p.m. 7. Meclizine 25 mg p.o. q.8 hours as needed. 8. Aspirin 1 tab p.o. at bedtime. 9. Finasteride 5 mg p.o. q.a.m. 10. Warfarin 4.5 mg p.o. q.p.m. 11. Nitroglycerin 0.4 mg sublingually q.5 minutes as needed. 12. Ascorbic acid 1000 mg p.o. q.p.m. 13. Vitamin E 200 units p.o. q.p.m. 14. Vitamin B 1 cap p.o. q.p.m. 15. Coenzyme/CoQ10 100 mg p.o. q.p.m. 16. Nadolol 20 mg p.o. q.p.m. 17. Loratadine 10 mg p.o. q.p.m. 18. Lantus 15 units subcutaneous at bedtime. 19. Vitamin D 1000 units p.o. q.p.m. 20. Furosemide 10 mg p.o. q.a.m. 21. Tylenol 650 mg p.o. q.4 hours as needed. 22. Artificial tears 1 drop right eye q.2 hours as needed. 23. Dulcolax suppository 10 mg p.r. daily as needed. 24. Cyclobenzaprine 10 mg p.o. t.i.d. as needed. 25. Docusate 100 mg p.o. b.i.d. 26. Insulin lispro sliding scale. 27. Lactulose 30 mg p.o. q.6 hours as needed. 28. Ammonium hydroxide 30 mL p.o. b.i.d. as needed. 29. Zofran ODT 4 mg p.o. q.6 hours as needed. 30. Oxycodone 10 mg p.o. q.4 hours as needed. 31. Percocet 1 tab p.o. q.4 hours as needed. 32. MiraLAX 17 g p.o. daily as needed. HOSPITAL COURSE: This is a brief summary of the patient's presentation. For more details, please see history and physical from ALVIN Loyd, on and consultation report from Trinh Paige NP, on 04/06/18. In brief, the patient is an 78-year-old male with a complex past medical history significant for the above, who presented to the hospital on 04/06/18 for an elective right total knee arthroplasty. The patient was in his normal state of health, had no complaints. Initially, the patient was cleared preoperatively by Cardiology, Pulmonology, and his primary care provider after he failed outpatient conservative treatment. The patient had a routine postoperative course. The patient initially had poor pain control, but this was improved greatly. The patient had some postoperative delirium but was reoriented easily. The patient' s hemoglobin and hematocrit decreased to an expected degree in the postoperative setting. The patient had good blood glucose control. The patient 's INR became therapeutic. On postop day #2, the patient had several episodes of vertigo, which was his baseline. The patient had no orthostatic hypotension. The patient had no evidence of post-operative DVT. The patient was urinating well without signs of urinary retention. The patient was evaluated for admission to the [facility] and he was deemed to be a candidate. The patient had other complaints at the time of discharge. The patient was subsequently transferred to [facility] on 04/09/18. DISCHARGE PLAN: The patient will continue to work with Physical Therapy and Occupational Therapy in [facility]. The patient will continue his medications as above. The patient should resume his outpatient regimen for his diabetes mellitus outpatient. The patient should consider Neurology consultation for evaluation of his vertigo. The patient should be seen in followup with Dr. Cabalelro in 2 weeks postoperatively. The patient should engage in activities as tolerated and have a heart-healthy diet, consistent carbohydrate. The patient should be maintained on fingersticks a.c. and h.s. with sliding scale blood glucose coverage while in [facility]. unavailable, he has outpatient medications. TIME SPENT: Approximately 30 minutes was spent on this discharge. ALVIN AGUILAR [id number]/[facility] #: [id number] ALESSANDRA
== END 2018-04-09 16:35 | DRG 470 ==
LOC: AA 08:26 → SSU 17:41
PROVIDERS: ADMIT Orthopaedic Surgery Adult Reconstructive Orthopaedic Surgery; ATTEND Internal Medicine
PROC: 0SRC0J9 Replacement of Right Knee Joint with Synthetic Substitute, Cemented, Open Approach (ICD-10-PCS; principal; 2018-04-06 11:00)
DX: M17.31 Unilateral post-traumatic osteoarthritis, right knee (principal); I42.9 Cardiomyopathy, unspecified; I50.32 Chronic diastolic (congestive) heart failure; G89.29 Other chronic pain; M10.9 Gout, unspecified; I25.10 Atherosclerotic heart disease of native coronary artery without angina pectoris; Z96.652 Presence of left artificial knee joint; Z96.698 Presence of other orthopedic joint implants; E11.51 Type 2 diabetes mellitus with diabetic peripheral angiopathy without gangrene; G47.33 Obstructive sleep apnea (adult) (pediatric); M25.761 Osteophyte, right knee; R42 Dizziness and giddiness; K57.90 Diverticulosis of intestine, part unspecified, without perforation or abscess without bleeding; E11.36 Type 2 diabetes mellitus with diabetic cataract; F98.8 Other specified behavioral and emotional disorders with onset usually occurring in childhood and adolescence; M21.161 Varus deformity, not elsewhere classified, right knee; K76.0 Fatty (change of) liver, not elsewhere classified; D48.0 Neoplasm of uncertain behavior of bone and articular cartilage; I11.0 Hypertensive heart disease with heart failure; E78.00 Pure hypercholesterolemia, unspecified; Z86.718 Personal history of other venous thrombosis and embolism; Z95.5 Presence of coronary angioplasty implant and graft; Z85.51 Personal history of malignant neoplasm of bladder; Z98.1 Arthrodesis status; Z88.1 Allergy status to other antibiotic agents; Z91.041 Radiographic dye allergy status; Z88.5 Allergy status to narcotic agent; Z88.0 Allergy status to penicillin; Z88.8 Allergy status to other drugs, medicaments and biological substances; Z91.018 Allergy to other foods; Z83.3 Family history of diabetes mellitus; Z82.49 Family history of ischemic heart disease and other diseases of the circulatory system; Z85.72 Personal history of non-Hodgkin lymphomas; Z95.1 Presence of aortocoronary bypass graft; Z91.013 Allergy to seafood
CPT/HCPCS: 36415; 80048; 85014; 85018; 85049; 85610; 88305; 88311; 97530; A9270-GY; C1776; G8978-GP-CJ; G8978-GP-CK; G8979-GP-CI; G8987-GO-CJ; G8988-GO-CI; J1100; J1650; J2250; J2270; J2405; J2704; J2795; J3010; J3490

== ENCOUNTER 2018-04-09 16:35 | Inpatient (IN) | payer MEDICARE ==
--- OUTSIDE RECORDS SUMMARY | 2018-04-09 16:38 | XMS REPORT ---
:1940 External Reference #:[id number] Author Organization [facility] Address [address] [place] [address] Phone [phone] Care Team Providers Name Role Phone Cooper Pelayo M.D. Primary Care Physician Unavailable Payers Type Date Identification Numbers Payment Provider Subscriber Medicare Primary Policy Number: [id number] Medicare - [facility] Damien Mora PayID: [id number] [address] [place] [address] [facility] Part B Policy Number: [id number] [facility] Damien Mora PayID: [id number] [address] [place] [address] Problems Date Description Provider Status Onset: Rosacea Active Onset: Vertigo Active Onset: Type 2 diabetes mellitus Active Onset: Essential hypertension Active Onset: Pure hypercholesterolemia Active Onset: Atrial fibrillation Active Onset: 03/09/2016 Keratoconjunctivitis sicca, not Anton Reynaga M.D. Active specified as Sjogren's Onset: 04/17/2015 Tear film insufficiency Margret Ponce O.D. Active Onset: 02/13/2015 Epiretinal membrane Anton Reynaga M.D. Active Onset: 02/13/2015 Pseudophakia Anton Reynaga M.D. 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 ETOH Use Denies alcohol use Recreational Drug Use Denies Drug Use Smoking Patient has never smoked Daily Caffeine Consumes on average 2 cups of regular coffee per day Allergies, Adverse Reactions, Alerts Date Description Reaction Status Severity Comments 01/03/2015 Actos active 01/03/2015 Compazine active 01/03/2015 Contrast Dye active 01/03/2015 Erythromycin active 01/03/2015 Hydrocodone active 01/03/2015 Iodine active 01/03/2015 Lipitor active 01/03/2015 Penicillin active 01/03/2015 Phenergan active 01/03/2015 Shellfish active 01/03/2015 Tricor active 01/03/2015 Zetia active 01/03/2015 Zocor active 03/24/2018 Statins active Medications Medication Date Status Form Strength Qnty SIG Indications Ordering Provider Systane 04/16 Active Solution 0.4-0.3% as needed Margret Hernandez /Anahy Ponce O.D. Acetaminophen-Cod Active Tablets 300-30mg Take 1 Unknown eine #3 /0000 Tablet Every 6 Hours as Needed For Pain Metronidazole Active Gel 1% Apply Unknown /0000 Externally Twic A Day Finasteride Active Tablets 5mg Take 1 Unknown /0000 Tablet By Mouth Every Day Glimepiride Active Tablets 4mg Take 1 Unknown /0000 Tablet By Mouth Twice A Day Metformin HCL Active Tablets 500mg Take 2 Unknown /0000 Tabs By Mouth Twice Daily. Metoprolol Active Tablets 25mg Take 1 Unknown Tartrate /0000 Tablet By Mouth Twice A Day Warfarin Sodium Active Tablets 3mg Take 1 Unknown /0000 Tablet By Mouth Every Day Crestor Active Tablets 10mg Take 1 Unknown /0000 Tablet By Mouth Every Day Meclizine HCL Active Tablets 25mg Take 1 Unknown /0000 Tablet By Mouth Three Times Daily as Needed For Dizziness/ Verti Invokana Active Tablets 100mg Unknown /0000 Victoza Active Solution 18mg/3ML Unknown /0000 Pen-Inject Torsemide Active Tablets 10mg Take 1 Unknown /0000 Tablet By Mouth Every Day Vitamin E 00 Active Capsules 200Unit Unknown /0000 Aspirin Adult Low Active Tablets DR 81mg Unknown Strength /0000 Clindamycin HCL Active Capsules 150mg Unknown /0000 Hydroxyzine HCL Active Tabs Unknown /0000 Lantus Solostar Active Solution 100Unit/M Unknown /0000 Pen-Inject L Nitrostat 00 Active Tablets Sub 0.4mg Unknown /0000 Zenda 3 500 00 Active Capsules 500mg Unknown /0000 Nadolol 00 Active Tablets 20mg Unknown /0000 Blink Tears Active Solution 0.25% as needed Unknown Lubricating Eye /0000 Drops Vigamox 02/06 Hx Solution 0.5% 3ml one drop Anton Macdonald right eye Arleo, - three M.D. 04/16 times day, start the day before surgery Ilevro 02/06 Hx Suspension 0.3% 3ml 1 drop Anton Macdonald right eye Arleo, - once M.D. 02/27 daily. start day before surgery Prednisolone 02/06 Hx Suspension 1% 15ml [address] [facility] right eye Arleo, - three M.D. 04/16 times day. taper as directed Systane 01/02 Hx Solution 0.4-0.3% as needed Anton Macdonald Brigitte Reynaga M.DMaximiliano 04/16 Zolpidem Tartrate Hx Tablets ER 12.5mg Take 1 Unknown ER /0000 Tablet By - Mouth 05/09 Night AT Bedtime as Needed (Insomnia) Januvia 00 Hx Tablets 100mg Take 1 Unknown /0000 Tablet - Every Day 04/16 Triamterene/[place] Hx Tablets 37.5-25mg Take 1 Unknown chlorothiazide /0000 Tablet By - Mouth 02/27 as Needed For Edema Dextroamphetamine Hx Caps ER 10mg Take One Unknown Sulfate ER /0000 24HR Capsule By - Mouth 05/09 Econazole Nitrate Hx Cream 1% Apply To Unknown /0000 Feet Twice - A Day For 05/09 3 Lisinopril 00 Hx Tablets 5mg I X Daily Unknown /0000 - 05/09 Results Description No Information Procedures Date CPT Code Description Status 03/14/2017 30161 Scanning Computerized Opthalmic Diagnostic Posterior Completed Seg Retina 03/14/2017 71149 Determination Of Refractive State Completed 03/14/2017 51059 Est Patient Comprehensive Exam Completed 03/09/2016 91225 Scanning Computerized Opthalmic Diagnostic Posterior Completed Seg Retina 03/09/2016 65345 Est Patient Comprehensive Exam Completed 02/12/2015 65728 Extracapsular Cataract Extraction W/Intraocular Lens Completed 02/06/2015 31493 Ophthalmic Biometry Completed 01/03/2015 97959 Scanning Computerized Opthalmic Diagnostic Posterior Completed Seg Retina 01/03/2015 11574 Est Patient Intermediate Exam Completed 07/03/2014 61816 Extracapsular Cataract Extraction W/Intraocular Lens Completed 06/24/2014 96403 Est Patient Comprehensive Exam Completed 06/24/2014 95929 Scanning Computerized Opthalmic Diagnostic Posterior Completed Seg Retina 06/24/2014 23737 Ophthalmic Biometry Completed 09/14/2013 21183 Determination Of Refractive State Completed 09/14/2013 68962 Est Patient Comprehensive Exam Completed 08/31/2012 72239 Est Patient Comprehensive Exam Completed 12/24/2011 81194 Scanning Computerized Opthalmic Diagnostic Posterior Completed Seg Retina 12/24/2011 54417 Determination Of Refractive State Completed 12/24/2011 82038 Est Patient Intermediate Exam Completed 05/25/2011 90340 Scanning Computerized Opthalmic Diagnostic Posterior Completed Seg Retina 05/25/2011 91592 Determination Of Refractive State Completed 05/25/2011 15823 New Patient Comprehensive Exam Completed Encounters Type Date Location Provider CPT E/M Dx Office Visit 02/06/2015 1:45p Anton Reynaga MD, Anton Reynaga, [address] 366.19 ariel Guardado V43.1 362.01 362.56 250.50 Plan of Care 03/24/2018 - Anton Reynaga M.D.H35.372 Puckering of macula, left eyeComments: Smoking can increase the risk of developing or worsening any eye related disease , as well as affect your overall health. If you are a smoker, we strongly recommend that you quit.If you are not a smoker, we strongly recommend that you do not start. A Macular Pucker is a wrinkling of the retina tissue. It can cause distortion in your vision. Please call the office if you notice a decrease or new distortion in your vision before then.Follow up:1 Year Follow Up OCT MAC You can expect to have your eyes dilated at your next visit. If Dr. Reynaga orders any additional testing, it may require extra time. We recommend that you bring sunglasses, as dilation drops often make you light sensitive until they wear off. We always recommend you bring someone to drive you home if you are uncomfortable driving with your eyes dilated. If you have any questions before your next visit, feel free to call our office at .E11.9 Type 2 diabetes mellitus without complicationsComments:You have diabetes. I do not detect any changes in both of your retinas from diabetes at this time. Proper control of your diabetes is important for the health of your eyes. Changes in your eyes from diabetes can happen without symptoms, so it is important that you have your eyes examined. Dr. Reynaga has sent a report to your primary care doctor, letting them know there is no damage from the Diabetes in your eyes.Z96.1 Presence of intraocular lensComments:The artificial lens implants in both eyes appear to be stable at this time.H16.223 Keratoconjunct sicca, not specified as Sjogren's, bilateral
--- OUTSIDE RECORDS SUMMARY | 2018-04-09 16:39 | XMS REPORT ---
:1940 External Reference #:[id number] Author Organization [facility] Address [address] [place] [address] [place] [address] Phone [phone] Care Team Providers Name Role Phone Cooper Pelayo MD Primary Care Physician Unavailable Payers Type Date Identification Numbers Payment Provider Subscriber Medicare Primary Policy Number: [id number] Medicare Damien Mora PayID: [id number] [address] [place] [address] [employer] Part B Policy Number: [id number] [facility] Damien Mora PayID: [id number] [address] [place] [address] Medig[employer] Part B Expires: Policy Number: [employer] Damien Mcintosh 2009 [id number] [employer] Name: MX Supplement [address] PayID: [id number] [place] [address] Problems Date Description Provider Status Onset: 09/06/2013 Type 2 diabetes mellitus Jairo Phillip M.D. Active Onset: 09/06/2013 Coronary arteriosclerosis Jairo Phillip M.D. Active Onset: 09/06/2013 Benign essential hypertension Jairo Phillip M.D. Active Onset: 10/08/2015 Disturbance in sleep behavior Celeste Asencio MD Active Onset: 11/11/2015 Obstructive sleep apnea syndrome Jaqueline Cavanaugh DNP, RN, Active CARPET LOOM FIXER-BC Note: Complex mixed Onset: 11/11/2015 Central sleep apnea syndrome Jaqueline Cavanaugh DNP, RN, Active [employer] LO[employer]-BC Onset: 03/01/2018 Localized, primary osteoarthritis Lashell Caballero M.D. Active Family History Date Family Member(s) Problem(s) Comments General Diabetes General Heart Disease General Hypertension Father due to [place] () Father due to Pulmonary Hypertension () Mother Diabetes Mother due to Heart Disease () Mother due to Diabetes () Social History Type Date Description Comments Marital Status Lives With Alone Occupation [employer] Occupation Retired Cigarette Use Never Smoked Cigarettes ETOH Use Denies alcohol use Smoking Patient has never smoked Recreational Drug Use Denies Drug Use Daily Caffeine Consumes on average 2 cups of regular coffee per day Daily Caffeine consumes chocolate occasionally Exercise Type/Frequency Exercises regularly Exercise Type/Frequency Does aerobics 4 times a week Water aerobics Allergies, Adverse Reactions, Alerts Date Description Reaction Status Severity Comments 09/06/2013 Statins upset stomach, muscle active pain and weakness 09/06/2013 Penicillins active 09/06/2013 Crestor active weakness 09/06/2013 Lipitor active weakness 09/06/2013 Zocor active weakness 10/08/2015 Shellfish-derived Products active 10/08/2015 Iodine active 10/08/2015 Hydrocodone active 10/08/2015 Erythromycin active 03/01/2018 Actos active 03/01/2018 Compazine active 03/01/2018 Phenergan active 03/01/2018 Tricor active 03/01/2018 Zetia active Medications Medication Date Status Form Strength Qnty SIG Indications Ordering Provider Nadolol 04/15/ Active Tablets 20mg 1 by Unknown 2015 mouth twice a day Vitamin E 04/01/ Active Capsules 200Unit 1 by mouth Unknown 2015 every day Acetaminophen-C 11/10/ Active Tablets 300-30mg 1 tab by Unknown odeine #3 2015 mouth every 6 hours as needed Metronidazole 10/08/ Active Gel 1% 55uni apply to [facility] 2015 ts affected Luis M, area(s) at MD bedtime Coenzyme Q-10 10/07/ Active Capsules 100mg 1 by mouth Unknown 2015 twice a day Fish Oil 10/07/ Active Capsules 1000mg 1 by mouth 2015 every day Finasteride 10/07/ Active Tablets 5mg 1 by mouth 2015 every day Flaxseed Oil 10/07/ Active Capsules 1000mg 1 by mouth 2015 every day Glimepiride 10/07/ Active Tablets 4mg 1 by mouth 2015 two times every day Hydroxyzine HCL 10/07/ Active Tablets 25mg 1 tab by Unknown 2015 mouth every night as needed Ilevro 10/07/ Active Suspension 0.3% 1 drop Unknown 2015 each eye daily Invokana 10/07/ Active Tablets 100mg 1 by mouth Unknown 2015 every day before breakfast Loratadine 10/07/ Active Tablets 10mg 1 by mouth Unknown 2015 every day Nitrostat 10/07/ Active Tablets Sub 0.4mg one sl Unknown 2015 q5min up to 3 doses as needed Crestor 10/07/ Active Tablets 10mg 1 by mouth Unknown 2015 once daily Aspirin Ec 10/07/ Active Tablets DR 81mg 1 by mouth Unknown 2015 every day Multi-Day 10/07/ Active Tablets 1 by mouth Unknown Vitamins 2016 every day Senna Laxative 10/07/ Active Tablets 8.6mg take as Unknown 2015 needed, daily Torsemide 10/07/ Active Tablets 10mg 1 by mouth Unknown 2015 every day Vitamin C 10/07/ Active Tablets 1000mg 1 by mouth Unknown 2015 every day Vitamin D High 10/07/ Active Capsules 1000Unit 1 by mouth Unknown Potency 2015 every day Coumadin 10/07/ Active Tablets 3mg take as Unknown [address] Ly 10/07/ Active Solution 18mg/3ML inject 1.2 Unknown 2015 Pen-Inject mg under the skin daily Meclizine HCL 08/06/ Active Tablets 25mg 90tab 1 po tid Other 2012 s prn Ordering Provider Metformin HCL 08/06/ Active Tablets 500mg 1 po bid Other 2012 Ordering Provider [place] 3 08/06/ Active Capsules 1000mg 100ca 1 po qd. Other 2012 ps Ordering Provider Vitamin B / Active Tablets 1 by mouth Unknown Complex 0000 every day Clindamycin HCL / Active Capsules 150mg Unknown 0000 Lantus Solostar / Active Solution 100Unit/M Inject 15 Unknown 0000 Pen-Inject L Units Beneath The Skin Every Bedtime. Ondansetron / Active Tablets 4mg dissolve Unknown 0000 Dispers one tablet orally every 8 hours as needed for nausea. Aleve / Active Tablets 220mg 2 tablets Unknown 0000 as needed for pain Rosuvastatin / Active Tablets 10mg mwf Unknown Calcium 0000 Tyleonol PM 02/18/ Hx take as Unknown 2016 - directed 2015 Metronidazole 09/06/ Hx Gel 1% 1unit apply prn Other 2012 - s Ordering 10/07/ Provider 2016 Triamterene/Hyd 09/06/ Hx Capsules 37.5-25mg 15cap 1 po qd Other rochlorothiazid 2012 Ordering e 02/06/ Provider 2018 Warfarin Sodium 09/06/ Hx Tablets 3mg 30tab 1 po qd Other 2012 - Ordering 10/07/ Provider 2016 Ambien 09/06/ Hx Tablets 10mg 30tab 1 po qhs Other 2012 - prn sleep Ordering 10/07/ insomnia Provider 2016 Metoprolol 09/06/ Hx Tablets 25mg 180ta 1 po bid Other Tartrate 2012 Ordering 02/06/ Provider 2017 Vitamin B 09/06/ Hx Tablets 30tab 1 po qd Other Complex 2012 - Ordering 10/07/ Provider 2016 Proscar 08/06/ Hx Tablets 5mg 90tab 1 po qd Other 2012 - Ordering 10/07/ Provider 2015 Aspirin Low 08/06/ Hx Tablets 81mg 90tab 2 po q Other Dose 2012 - morning, 2 Ordering 10/07/ po q Provider 2016 evening Amaryl 08/06/ Hx Tablets 2mg 90tab 1 tablet Other 2012 bid Ordering 10/07/ Provider 2015 Lisinopril 08/06/ Hx Tablets 10mg 1/2 tab Other 2012 - po qd Ordering 07/20/ Provider 2016 Senna 08/06/ Hx Capsules 8.6mg 60cap 1 po qd Other 2012 - Ordering 10/07/ Provider 2015 Flax Seed Oil 08/06/ Hx Capsules 1000mg 1 po qd Other 2012 - Ordering 10/07/ Provider 2015 Multivitamins 08/06/ Hx Capsules 30cap 1 capsule Other 2012 rena;y Ordering 10/07/ Provider 2015 Aspirin 12/24/ Hx Chewtabs 81mg 30uni 2 po qd Jairo cherry F. 09/06/ Juan F Phillip M.D. Immunizations CPT Code Status Date Vaccine Lot # [id number] Given 08/07/2015 Influenza Virus 3Yrs & Over Vital Signs Date Vital Result Comment 03/24/2018 Height 69 inches 5'9" Weight 197.00 lb BP Systolic Sitting 120 mmHg BP Diastolic Sitting 58 mmHg Respiratory Rate 16 /min Body Temperature 97.6 F Pain Level 0 BMI (Body Mass Index) 29.1 kg/m2 03/01/2018 Height 69 inches 5'9" Weight 197.00 lb BP Systolic Sitting 140 mmHg BP Diastolic Sitting 72 mmHg Respiratory Rate 16 /min Body Temperature 97.1 F Pain Level 2 BMI (Body Mass Index) 29.1 kg/m2 02/07/2018 Height 69 inches 5'9" Weight 197.25 lb Heart Rate 68 /min BP Systolic Sitting 116 mmHg Lue reg cuff BP Diastolic Sitting 68 mmHg Lue reg cuff Respiratory Rate 16 /min O2 % BldC Oximetry 98 % On Ra BMI (Body Mass Index) 29.1 kg/m2 11/08/2017 Height 69 inches 5'9" Weight 202.50 lb with boots Heart Rate 70 /min BP Systolic Sitting 120 mmHg Lue reg cuff BP Diastolic Sitting 74 mmHg Lue reg cuff Respiratory Rate 16 /min O2 % BldC Oximetry 96 % On Ra BMI (Body Mass Index) 29.9 kg/m2 07/20/2017 Height 69 inches 5'9" Weight 209.50 lb with shoes Heart Rate 60 /min BP Systolic Sitting 130 mmHg Lue large cuff BP Diastolic Sitting 70 mmHg Lue large cuff Respiratory Rate 16 /min O2 % BldC Oximetry 98 % On Ra BMI (Body Mass Index) 30.9 kg/m2 11/02/2016 Height 69 inches 5'9" Weight 194.00 lb Heart Rate 66 /min BP Systolic Sitting 118 mmHg BP Diastolic Sitting 76 mmHg Respiratory Rate 14 /min O2 % BldC Oximetry 96 % BMI (Body Mass Index) 28.6 kg/m2 04/26/2016 Height 69 inches 5'9" Weight 194.00 lb reported Heart Rate 70 /min BP Systolic 100 mmHg BP Diastolic 62 mmHg Respiratory Rate 14 /min O2 % BldC Oximetry 97 % BMI (Body Mass Index) 28.6 kg/m2 02/20/2016 Height 69 inches 5'9" Weight 191.00 lb Heart Rate 77 /min BP Systolic Sitting 62 mmHg BP Diastolic Sitting 62 mmHg Respiratory Rate 18 /min O2 % BldC Oximetry 98 % BMI (Body Mass Index) 28.2 kg/m2 01/09/2016 Height 69 inches 5'9" Weight 194.00 lb Heart Rate 75 /min BP Systolic 110 mmHg BP Diastolic 72 mmHg Respiratory Rate 14 /min O2 % BldC Oximetry 98 % BMI (Body Mass Index) 28.6 kg/m2 11/11/2015 Height 69 inches 5'9" Weight 194.00 lb Heart Rate 68 /min BP Systolic 112 mmHg BP Diastolic 70 mmHg Respiratory Rate 16 /min BMI (Body Mass Index) 28.6 kg/m2 10/08/2015 Height 69 inches 5'9" Weight 197.00 lb Heart Rate 68 /min BP Systolic 142 mmHg BP Diastolic 80 mmHg Respiratory Rate 14 /min O2 % BldC Oximetry 96 % BMI (Body Mass Index) 29.1 kg/m2 Neck Circumference in inches 16.5 09/06/2013 Height 69 inches 5'9" Weight 197.75 lb Heart Rate 58 /min BP Systolic Sitting 144 mmHg BP Diastolic Sitting 64 mmHg BMI (Body Mass Index) 29.2 kg/m2 08/15/2013 Height 69 inches 5'9" Weight 196.00 lb Heart Rate 66 /min BP Systolic 125 mmHg BP Diastolic 76 mmHg BMI (Body Mass Index) 28.9 kg/m2 Results Test Date Test Result H/L Range Note Laboratory test finding 09/06/2013 Blood Urea Nitrogen 30 mg/dL High 6-24 Creatinine 09/06/2013 Creatinine 1.20 mg/dL 0.50-1.40 Egfr Non- 59.0 >60 Egfr 75.9 >60 1 1 Because ethnic data is not always readily available, this report includes an eGFR for both -Americans and non- Americans. The National Kidney Disease Education Program (NKDEP) does not endorse the use of the MDRD equation for patients that are not between the ages of 18 and 70, are , have extremes of body size, muscle mass, or nutritional status, or are non- or non-. According to the National Kidney Foundation, irrespective of diagnosis, the stage of the disease is based on the level of kidney function: Stage Description GFR(mL/min/1.73 m(2)) 1 Kidney damage with normal or decreased GFR 90 2 Kidney damage with mild decrease in GFR 60-89 3 Moderate decrease in GFR 30-59 4 Severe decrease in GFR 15-29 5 Kidney failure <15 (or dialysis) Procedures Date CPT Code Description Status 08/12/2017 53989 Polysomnography Sleep Staging 4+ Parameters W/Cpap Completed 12/08/2015 55851 Polysomnography Sleep Staging 4+ Parameters W/Cpap Completed 10/28/2015 36133 Polysomnography Sleep Staging 4+ Parameters Completed 09/06/2013 11145 EKG Tracing & Interpretation Completed 08/29/2013 50590 Xray Knee 3 Views Completed 12/19/2009 58381 Treadmill Interp/Report Only Completed 12/19/2009 37226 Stress Test Supervsn W/Out I/R Completed 10/06/2009 10756 Rad Exam; Hip Unilat Completed 10/06/2009 00845 Rad Exam; Pelvis Completed 07/06/2005 80981 Treadmill Interp/Report Only Completed 07/06/2005 31565 Stress Test Supervsn W/Out I/R Completed Encounters Type Date Location Provider CPT E/M Dx Office Visit 03/01/2018 [facility] Lashell Caballero M.D. 11839 M25.561 2:00p Of Oli M25.461 M17.11 Office Visit 02/07/2018 1:45p [facility] Jaqueline Cavanaugh, 76814 G47.33 Services Of Jeffrey DIAMOND RN, MATT-BEST G47.37 G47.14 Office Visit 11/08/2017 1:45p [facility] Jaqueline Cavanaugh, 52316 G47.33 Services Of Jeffrey DIAMOND RN, FNP-BC G47.37 G47.14 Office Visit 07/20/2017 9:45a [facility] Jaqueline Cavanaugh, 67312 G47.37 Services Of Jeffrey DIAMOND RN, MATT-BEST G47.33 G47.14 Office Visit 11/02/2016 3:30p [facility] Jaqueline Cavanaugh, 73945 G47.33 Services Of Jeffrey DIAMOND RN, MATT-BEST G47.37 G47.00 Office Visit 04/26/2016 2:45p [facility] Jaqueline Cavanaugh, 10961 G47.33 Services Of Jeffrey DIAMOND RN, MATT-BEST G47.37 G47.14 Office Visit 02/20/2016 3:00p [facility] Jaqueline Morse, 10460 G47.33 Services Of Jeffrey DIAMOND RN, MATT-BEST G47.37 G47.00 R53.83 I25.10 Office Visit 01/09/2016 2:15p [facility] Jaqueline Cavanaugh, 52271 G47.33 Services Of Jeffrey DIAMOND RN, MATT-BEST Office Visit 11/11/2015 1:30p [facility] Jaqueline Cavanaugh, 92420 G47.33 Services Of Jeffrey DIAMOND RN, MATT- Office Visit 11/06/2015 10:21a [facility] Montserrat Fountainr, 20151 I49.9 Assoc[facility] Hospital[facility] D.OMaximiliano E78.0 E11.9 I25.10 Office Visit 11/05/2015 1:59p [facility] Of Gena Muñoz M.D. 12114 I25.810 [facility] I49.3 Office Visit 11/04/2015 10:20a [facility] [place], [address] R00.1 Assoc[facility] Hospitalists Debby E78.0 E11.9 I25.10 Office Visit 10/08/2015 11:00a [facility] [place] [address] G47.9 Services Of [facility] Office Visit 09/12/2013 12:45p [facility] Of Lashell Caballero M.D. 52995 715.96 C.M.A. 727.40 Office Visit 09/06/2013 10:00a [facility] Jairo Phillip M.D. 98259 401.1 414.01 250.00 Office Visit 08/29/2013 12:15p [facility] Of Lashell Caballero M.D. 25924 715.96 C.M.A. Office Visit 08/15/2013 1:30p [facility] Of Hemant Abraham M.D. 21134 715.96 C.M.A. 727.40 Office Visit 12/19/2009 10:00a [facility] Jairo Phillip, 06907 794.31 M.Lopez Office Visit 10/06/2009 10:15a [facility] Of Hemant Abraham M.D. 12049 724.4 C.M.A. 727.09 Office Visit 09/08/2009 1:30p [facility] Shivam Fisher, 92221 756.12 Of Jeffrey Guardado 756.11 724.02 Office Visit 07/06/2005 7:00a [facility] Jairo Phillip, 08021 786.50 MJuan M 250.00 272.0 Plan of Care Future Appointment(s):04/21/2018 2:15 pm - Lashell Caballero M.D. at [facility].04/06/2018 11:30 am - Daniel Melendez PA-C at [facility]..04/06/2018 11:30 am - ALVIN Stafford at [facility]..04/06/2018 11:30 am - Lashell Caballero M.D. at [facility]08/15/2018 1:45 pm - Jaqueline Cavanaugh DNP, RN, CARPET LOOM FIXER-BC at [facility]03/24/2018 - Lashell Caballero M.D.M25.561 Pain in right kneeFollow up:Follow up: 2 weeks after uisbwceK02.461 Effusion, right kneeM17.11 Unilateral primary osteoarthritis, right knee
[2018-04-09] MEDS ORDERED: Dextrose 50% Syringe 50 ML* 25 GM/50 ML SYRINGE IV PUSH PRN (16:49)
[2018-04-09] MEDS ORDERED: Warfarin TAB(*) 2 MG PO SCH (17:00)
[2018-04-09] MEDS ORDERED: Warfarin TAB(*) 1 MG PO SCH (17:00)
[2018-04-09] MEDS: Nadolol TAB* 40 MG PO SCH (18:00)
[2018-04-09] MEDS: oxyCODONE/Acetamin 5/325 MG* TAB PO PRN (18:01)
[2018-04-09] MEDS: Cyclobenzaprine TAB* 10 MG PO PRN (18:26)
[2018-04-09] MEDS: Docusate CAP* 100 MG PO SCH (20:09)
[2018-04-09] MEDS: Insulin LISPRO* 1 UNITS UNIT SUBCUT SCH (20:57)
[2018-04-09] MEDS: Insulin GLARGINE(*) 1 UNITS UNIT SUBCUT SCH (20:58)
--- NOTE | 2018-04-09 22:17 | HP ---
HISTORY AND PHYSICAL: DATE OF ADMISSION: 04/09/18 REASON FOR ADMISSION: Right total knee replacement. HISTORY OF PRESENT ILLNESS: Damien Mora is an 78-year-old male. He has a medical history significant for coronary artery disease. He has undergone a stenting in the past as well as a CABG. He also has a history of cardiomyopathy and bladder cancer as well as sleep apnea. The patient is on chronic Coumadin therapy having had a DVT in the past. The patient had a lot of difficulty with pain in his right knee. He sought out consultation with Dr. Lashell Caballero. He had failed conservative treatment including injections. It was decided the best course of action would be to have a total knee replacement. He was admitted to [facility] on 04/06/18. He underwent a right total knee replacement that day. Postoperatively, his course was notable for mild anemia but did not require a transfusion. He was restarted on Coumadin. He is felt to have physical therapy and occupational therapy needs. He is now being admitted for inpatient rehab, so he may return to independent living. PAST MEDICAL HISTORY: Significant for: 1. The aforementioned coronary artery disease. 2. He had a history of diabetes mellitus. 3. He has had a coronary artery bypass graft. 4. He had a history of DVT. 5. Non-Hodgkin's lymphoma. 6. Bladder cancer. 7. Gout. 8. Spinal stenosis. 9. Sleep apnea. 10. He has had lumbar spine surgery in the past and a left total knee replacement as well. CURRENT MEDICATIONS: Include: 1. Aspirin 81 mg daily. 2. He is on Flexeril. 3. Proscar. 4. Lantus insulin. 5. Humalog insulin. 6. Corgard. 7. Percocet for pain control. 8. Coumadin. 9. Demadex. ALLERGIES: He has multiple allergies including PENICILLIN. He is allergic to STATINS, HYDROCODONE, ERYTHROMYCIN, ACTOS, TRICOR, and ZETIA. SOCIAL HISTORY: He is a nonsmoker, nondrinker. He lives by himself in a [address] apartment. He has several children and other relatives living in the area. REVIEW OF SYSTEMS: The patient reports no current shortness of breath or chest pain. PHYSICAL EXAMINATION VITAL SIGNS: The patient's temperature is 98.7; blood pressure is 144/60, pulse 59, respirations 18. HEENT: His extraocular movements are intact. Tongue is midline. NECK: Supple. LUNGS: Sounded clear to auscultation bilaterally. HEART: Sounds were regular. S1 and S2 were audible. ABDOMEN: Soft and nontender. EXTREMITIES: His right knee has a wound which is clean and dry. Peripheral pulses were intact. His neurologic sensation is somewhat diminished in his feet. Muscle strength in his right leg is about 3/5. He can dorsiflex with about 4/5 strength, otherwise it is 5/5. FUNCTIONAL EXAM: He transfers with min to mod assistance. ASSESSMENT: Right total knee replacement. PLAN: Our plan is to integrate him into a comprehensive and therapeutic rehab program on the following goals: 1. Physical Therapy will work with the patient. They are going to work on functional transfer training and ambulation training with a walker. 2. Occupational Therapy will see the patient, work on his activities of daily living including toileting and toilet transfers. 3. Coumadin for DVT prophylaxis. 4. For his diabetes, we will continue him on Lantus insulin sliding scale coverage. At home, he normally does Lantus and glimepiride as well as Victoza. 5. Adequate analgesia. 6. His bowels will be regulated. 7. Floorworker will be closely involved to make sure that any services or equipment that the patient requires are in place prior to discharge. 8. Family training as appropriate. 9. Home with appropriate services. ESTIMATED LENGTH OF STAY: 1 week. [id number]/CPS #: [id number] MTDD
[2018-04-10 05:32] LABS: ABS Basophils 0 10^3/ul (0-0.2); ABS Eosinophils 0.2 10^3/ul (0-0.6); ABS Lymphocytes 1.1 10^3/ul (1.0-4.8); ABS Monocytes 0.8 10^3/ul (0-0.8); ABS Neutrophils 5.5 10^3/ul (1.5-7.7); ABS Nucleated RBC 0 10^3/ul; Eosinophil % 2.7 % (0-6); Hematocrit 33 % (42-52); Hemoglobin 11.1 g/dl (14.0-18.0); Lymphocyte % 14.6 % (25-47); Mean Corpuscular HGB Conc 34 g/dl (31-36); Mean Corpuscular Hemoglobin 32 pg (27-31); Mean Corpuscular Volume 95 fL (80-94); Mean Platelet Volume 8.4 um3 (7.4-10.4); Nucleated Red Blood Cells % 0.1; Platelet Count 246 10^3/ul (150-450); Red Blood Count 3.48 10^6/ul (4.00-5.40); Red Cell Distribution Width 14 % (10.5-15); White Blood Count 7.6 10^3/ul (3.5-10.8)
[2018-04-10 05:40] LABS: INR 2.4 (0.77-1.02)
[2018-04-10 05:50] LABS: EGFR Non-African American 65.8 (>60)
[2018-04-10] MEDS: oxyCODONE/Acetamin 5/325 MG* TAB PO PRN ×3 (06:52→21:08)
[2018-04-10] MEDS: Docusate CAP* 100 MG PO SCH ×2 (08:50→21:08)
[2018-04-10] MEDS: Aspirin EC TAB* 81 MG TAB.EC PO SCH (08:50)
[2018-04-10] MEDS: Finasteride TAB* 5 MG PO SCH (08:50)
[2018-04-10] MEDS: Torsemide TAB* 20 MG PO SCH (08:50)
[2018-04-10] MEDS: Insulin LISPRO* 1 UNITS UNIT SUBCUT SCH ×4 (08:52→21:07)
[2018-04-10] MEDS: Cyclobenzaprine TAB* 10 MG PO PRN ×2 (08:56→17:26)
[2018-04-10] MEDS: Acetaminophen TAB* 325 MG PO PRN (09:51)
[2018-04-10] MEDS ORDERED: Enoxaparin(*) 40 MG/0.4 ML SYR SUBCUT SCH (12:00)
[2018-04-10] MEDS ORDERED: Warfarin TAB(*) 2 MG PO SCH (17:00)
[2018-04-10] MEDS: Nadolol TAB* 40 MG PO SCH (17:25)
--- NOTE | 2018-04-10 17:53 | PN ---
Progress Note Date of Service: 04/10/18 Note: DEBBIE CAMPBELL was visited. Therapy notes read and reviewed. He feels like he is doing well in therapy. BS a little high. Will bring in Amaryl from home. Current Medications: Active Medications Generic Name Dose Route Start Last Admin Trade Name Freq PRN Reason Stop Dose Admin Acetaminophen 650 mg 04/09/18 16:38 04/10/18 09:51 Tylenol Tab* PO 650 mg Q6H PRN Administration FEVER/PAIN Aspirin 81 mg 04/10/18 09:00 04/10/18 08:50 Aspirin Ec Tab* PO 81 mg DAILY HARRISON Administration Cyclobenzaprine HCl 10 mg 04/09/18 16:48 04/10/18 17:26 Flexeril Tab* PO 10 mg TID PRN Administration SPASMS Dextrose 12.5 gm 04/09/18 16:49 D50w Syringe 50 Ml* IV PUSH .FOR FS < 60 - SS PRN FS < 60 Docusate Sodium 100 mg 04/09/18 21:00 04/10/18 08:50 Colace Cap* PO 100 mg BID HARRISON Administration Finasteride 5 mg 04/10/18 09:00 04/10/18 08:50 Proscar Tab* PO 5 mg DAILY HARRISON Administration Glimepiride 2 mg 04/11/18 09:00 Glimepiride (Nf) PO DAILY HARRISON Protocol Insulin Glargine 15 units 04/09/18 21:00 04/09/18 20:58 Lantus(*) SUBCUT 15 unit Q24H HARRISON Administration Insulin Human Lispro 0 - 10 units 04/09/18 21:00 04/10/18 17:08 Humalog* SUBCUT 4 units ACHS HARRISON Administration Protocol Magnesium Hydroxide 30 ml 04/09/18 16:38 Milk Of Magnesia Liq* PO Q6H PRN CONSTIPATION Nadolol 20 mg 04/09/18 18:00 04/10/18 17:25 Corgard Tab* PO 20 mg Q24H HARRISON Administration Oxycodone/Acetaminophen 2 tab 04/09/18 16:44 Percocet 5/325 Tab* PO Q4H PRN PAIN - SEVERE Oxycodone/Acetaminophen 1 tab 04/09/18 16:47 04/10/18 11:42 Percocet 5/325 Tab* PO 1 tab Q4H PRN Administration PAIN - MODERATE TO SEVERE Polyvinyl Alcohol 1 drop 04/09/18 16:47 Polyvinyl Alcohol 1.4% Opth* RIGHT EYE Q2H PRN DRY EYE Senna 2 tab 04/09/18 16:38 Senokot Tab* PO BEDTIME PRN CONSTIPATION Torsemide 10 mg 04/10/18 09:00 04/10/18 08:50 Demadex* PO 10 mg DAILY HARRISON Administration Warfarin Sodium 2 mg 04/10/18 17:00 04/10/18 17:25 Coumadin Tab(*) PO 2 mg DAILY@1700 HARRISON Administration Protocol Vital Signs: Vital Signs Temp Pulse Resp BP Pulse Ox 97.8 F 56 18 144/56 100 04/10/18 15:51 04/10/18 15:51 04/10/18 17:26 04/10/18 15:51 04/10/18 16:27 Lab Results: Laboratory Results - last 24 hr 04/09/18 04/10/18 04/10/18 20:20 04:58 04:58 WBC 7.6 RBC 3.48 L Hgb 11.1 L Hct 33 L MCV 95 H MCH 32 H MCHC 34 RDW 14 Plt Count 246 MPV 8.4 Neut % (Auto) 72.1 Lymph % (Auto) 14.6 L [place] % (Auto) 10.2 H Eos % (Auto) 2.7 Baso % (Auto) 0.4 Absolute Neuts (auto) 5.5 Absolute Lymphs (auto) 1.1 Absolute Monos (auto) 0.8 Absolute Eos (auto) 0.2 Absolute Basos (auto) 0 Absolute Nucleated RBC 0 Nucleated RBC % 0.1 INR (Anticoag Therapy) Sodium 132 L Potassium 4.3 Chloride 99 L Carbon Dioxide 28 Anion Gap 5 BUN 19 Creatinine 1.08 Est GFR ( Amer) 79.6 Est GFR (Non-Af Amer) 65.8 BUN/Creatinine Ratio 17.6 Glucose 155 H POC Glucose (mg/dL) 175 H Calcium 7.9 L Total Bilirubin 0.50 AST 30 ALT 19 Alkaline Phosphatase 80 Total Protein 6.1 L Albumin 3.0 L Globulin 3.1 Albumin/Globulin Ratio 1.0 04/10/18 04/10/18 04/10/18 04:58 07:57 12:06 WBC RBC Hgb Hct MCV MCH MCHC RDW Plt Count MPV Neut % (Auto) Lymph % (Auto) [place] % (Auto) Eos % (Auto) Baso % (Auto) Absolute Neuts (auto) Absolute Lymphs (auto) Absolute Monos (auto) Absolute Eos (auto) Absolute Basos (auto) Absolute Nucleated RBC Nucleated RBC % INR (Anticoag Therapy) 2.40 H Sodium Potassium Chloride Carbon Dioxide Anion Gap BUN Creatinine Est GFR ( Amer) Est GFR (Non-Af Amer) BUN/Creatinine Ratio Glucose POC Glucose (mg/dL) 204 H 162 H Calcium Total Bilirubin AST ALT Alkaline Phosphatase Total Protein Albumin Globulin Albumin/Globulin Ratio 04/10/18 16:22 WBC RBC Hgb Hct MCV MCH MCHC RDW Plt Count MPV Neut % (Auto) Lymph % (Auto) [place] % (Auto) Eos % (Auto) Baso % (Auto) Absolute Neuts (auto) Absolute Lymphs (auto) Absolute Monos (auto) Absolute Eos (auto) Absolute Basos (auto) Absolute Nucleated RBC Nucleated RBC % INR (Anticoag Therapy) Sodium Potassium Chloride Carbon Dioxide Anion Gap BUN Creatinine Est GFR ( Amer) Est GFR (Non-Af Amer) BUN/Creatinine Ratio Glucose POC Glucose (mg/dL) 223 H Calcium Total Bilirubin AST ALT Alkaline Phosphatase Total Protein Albumin Globulin Albumin/Globulin Ratio Exam: LUNGS: Clear HEART: reg rhythm ABDOMEN: Soft EXTREMITIES: Right knee wound C/D/I NEUROLOGIC: alert and oriented. Motor exam non focal Assessment/Plan: 1. Right total knee arthroplasty: WBAT RLE. PT/OT. 2. Diabetes: Lantus/SSI. Will bring in glimepiride from home 3. CAD: ASA/Corgard 4. Hx of Bladder Cancer/Prostatic hypertrophy: Proscar 5. History of DVT: Coumadin. 2 mg tonight 6. Advanced Directives: Full Code 7. Analgesia: Percocet 04/10/18 17:50
[2018-04-10] MEDS: Artificial Tears* 15 ML BTL RIGHT EYE PRN (21:06)
[2018-04-10] MEDS: Insulin GLARGINE(*) 1 UNITS UNIT SUBCUT SCH (21:07)
[2018-04-11] MEDS: oxyCODONE/Acetamin 5/325 MG* TAB PO PRN ×4 (04:20→20:16)
[2018-04-11 07:08] LABS: INR 2.14 (0.77-1.02)
[2018-04-11] MEDS: Docusate CAP* 100 MG PO SCH ×2 (08:38→19:45)
[2018-04-11] MEDS: Aspirin EC TAB* 81 MG TAB.EC PO SCH (08:38)
[2018-04-11] MEDS: Finasteride TAB* 5 MG PO SCH (08:42)
[2018-04-11] MEDS: Torsemide TAB* 20 MG PO SCH (08:44)
[2018-04-11] MEDS: Insulin LISPRO* 1 UNITS UNIT SUBCUT SCH ×4 (08:49→20:46)
[2018-04-11] MEDS ORDERED: CMC:Glimepiride (NF) 2 MG TAB PO SCH (09:00)
[2018-04-11] MEDS: Cyclobenzaprine TAB* 10 MG PO PRN ×2 (10:03→16:25)
--- NOTE | 2018-04-11 12:25 | PMRUTEAM ---
PMRU: Team Meeting Current Status: Nursing: Current Status Skin Deviations [Right Knee] Incision Skin Deviation Description [ sutures intact, red, warm, edematous Right Knee] Drain Type [Right Knee] None Bladder Current Status voiding Bowel Current Status continues bowel meds Nutrition Current Status eating well Medication Current Status needs reinforcement Physical Therapy: Current Status Bed Mobility Assistance Not Tested Transfer Moblility Assistance Supervision Transfer/Bed Mobility Rolling Walker Recommended Devices Ambulation Assistance Supervision Ambulation Assistive Devices Rolling Walker Number of Feet Patient 100' x 2 Ambulated Stairs Assistance Contact Guard Stairs Recommended Devices One Rail Number of Stairs 15 Curb Not Tested Occupational Therapy: Current Status Upper Body Dressing Supervision Lower Body Dressing Min Assist Bathing Min Assist Toileting Contact Guard Assist Toilet Transfer Contact Guard Assist Shower Transfer Contact Guard Assist Eating Independent Rec Therapy: Current Status Summary of Assessment and RT assessment complete and pt. is aware of RT Clinical Impression services. Pt. was interactive in conversation and expressed desire to be more involved in leisure after d/c. Pt. open to leisure visits while on the unit. Treatment Goals Pt. will engage in leisure activities while on the unit. Treatment Plan Provide RT services and encourage involvement. Social Work: Current Status Discharge Plan return home with home care svs and family support Potential for Family Training pt lives alone w/ minimal family support Anticipated Discharge Home Destination Discharge With Home care svs and family support Nutrition: Current Status Monitoring nutritrion assessment planned 04/16 per NDS protocol. Pt presently on consistent carbohydrate diet w/FS ranging 160s-230s. Lantus and glimepiride in place; pt also takes metformin at home (500 mg BID). Eating well (90-100% of meals) . Has been taking Coumadin at home, so no new education need anticipated at present time. Initial/tentative goals outlined below. Goals: Physical Therapy: Updated Goals Transfer/Bed Mobility Rolling Walker Recommended Devices Occupational Therapy: Initial Goals Goals to be Completed in (Days 3-5 days ) Upper Body Bathing Routine Modified Independent with Lower Body Bathing Routine Modified Independent with Upper Body Dressing Routine Independent Lower Body Dressing Routine Modified Independent with Toilet Hygeine and Clothing Modified Independent with Management Routine Toilet Transfer Routine Modified Independent with Step-In Shower Transfer Modified Independent with Routine Functional Transfers for ADL Modified Independent with Grooming Routine Independent Feeding Routine Independent Nursing: Goals Bladder Goal indep Bowel Goal indep Nutrition Goal 100% meals Medication Goal indep Nutrition: Goals Intervention Goals 1. adequate po intake to support post-op healing and lean body mass without add'l wt gain 2. glycemic control within inpatient parameters; no s/sx hypo-hyperglycemia 3. regulation of post-op bowel pattern; no c/o constipation (or diarrhea) 4. 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 Social Work: Goals Discharge Plan return home with home care svs and family support Potential for Family Training pt lives alone w/ minimal family support Anticipated Discharge Home Destination Discharge With Home care svs and family support Care Plan: Care Plan ADL's - Improve/Maintain Start: 04/10/18 14:26 Freq: DAILY Status: Active Target: Protocol: Activity Type Activity Date Activity User E-Sign Co-Sign Detail Recorded Client Recorded Date Recorded By Document 04/10/18 14:26 [id number] [id number] 04/10/18 14:27 [id number] 04/10/18 14:26 PMRU Outcome: ADL's/ADL Transfers Orders/Interventions Occupational Therapy Evaluation & Treatment Device Yes Patient to receive OT 5x/wk for 60-120 Therex min/day Self Care Management Group Therapy Neuromuscular ReEducation UE/LE ADL's with Assist Yes ADL Transfers with Assist Yes Toileting: Transfers,Clothing Management Yes ,Hygeine w/Assist Light Kitchen/Laundry w/Assist Yes Progression Toward Outcome/Goals Progressing Outcome/Goals Met Pt. is an 78 y/ o male s/p R TKA presenting with limited RLE ROM, decreased endurance, limited balance , and increased pain affecting bathing, toileting, dressing and functional mobility. Pt. completes functional mobility to shower room with FWW and S/ CGA. Pt. completes bathing as stated above. Pt. c/o increased pain during bathing. Pt. completes functional mobility back to room and c/o dizziness/ lightheadedness . Pt. transfers into bed with Mary to get RLE into the bed. Vitals taken: BP 162/66 O2 98 . Pt. becomes pale in the face. Nsg staff notified. C/o R knee pain. Nsg staff administers medication. Pt . completes dressing as stated above sitting at EOB. Pt. transfers back into bed with Mary. Cardiovascular- Improve/Maintain Start: 04/11/18 01:53 Freq: QSHIFT Status: Active Target: Protocol: Activity Type Activity Date Activity User E-Sign Co-Sign Detail Recorded Client Recorded Date Recorded By Document 04/11/18 01:54 [id number] 04/11/18 01:56 [id number] 04/11/18 01:54 PMRU Outcome: Cardiovascular Vital Signs q Shift for 48hrs Then BID Yes Daily Weight Ordered No Current Cardiovascular Outcome/Goal Maintain/ Achieve Baseline HR, BP , Perfusion Coping/Psych-Improve/Maintain Start: 04/11/18 01:53 Freq: QSHIFT Status: Active Target: Protocol: Activity Type Activity Date Activity User E-Sign Co-Sign Detail Recorded Client Recorded Date Recorded By Document 04/11/18 01:54 [id number] 04/11/18 01:56 [id number] 04/11/18 01:54 PMRU Outcome: Coping/Psychosocial Coping Outcome/Goals Verbalization of Acceptance of Rehab Admit Willingness to Participate in Treatment Plan and Basic Needs Psychosocial Outcome/Goals Maintain/ Improve Emotional Health Demonstrates Knowledge of Healthy Coping Mechanisms Available Cooperate/ Participate in Plan Discharge Planning - Improve/Maintain Start: 04/11/18 01:53 Freq: DAILY Status: Active Target: Protocol: Activity Type Activity Date Activity User E-Sign Co-Sign Detail Recorded Client Recorded Date Recorded By Document 04/11/18 01:53 [id number] 04/11/18 01:53 [id number] 04/11/18 01:53 PMRU Outcome: Discharge Planning Update Patient Family No Outcome/Goals Demonstrates Understanding of Discharge Plan Education-Improve/Maintain Start: 04/11/18 01:53 Freq: QSHIFT Status: Active Target: Protocol: Activity Type Activity Date Activity User E-Sign Co-Sign Detail Recorded Client Recorded Date Recorded By Document 04/11/18 01:54 [id number] 04/11/18 01:56 [id number] 04/11/18 01:54 PMRU Outcome: Education Outcome/Goals Demonstrate/ Verbalize Understanding of Written Discharge Instructions Demonstrates Skills Encourage Questions /GI-Improve/Maintain Start: 04/11/18 01:53 Freq: QSHIFT Status: Active Target: Protocol: Activity Type Activity Date Activity User E-Sign Co-Sign Detail Recorded Client Recorded Date Recorded By Document 04/11/18 01:54 [id number] 04/11/18 01:56 [id number] 04/11/18 01:54 PMRU Outcome: Genitourinary/ Gastrointestinal Genitourinary- Outcome/Goals Maintain/ Achieve Urinary Continence Gastrointestinal-Outcome/Goals Maintain/ Achieve Bowel Regularity in Accordance with Pt's Baseline Prevent Constipation Medication Administration Start: 04/11/18 01:53 Freq: QSHIFT Status: Active Target: Protocol: Activity Type Activity Date Activity User E-Sign Co-Sign Detail Recorded Client Recorded Date Recorded By Document 04/11/18 01:54 [id number] 04/11/18 01:56 [id number] 04/11/18 01:54 PMRU Outcome: Medication Administration Assess Patient Knowledge/Teach Med No Education for all Meds Outcome/Goals Patient Independent with Medication Administration at Home Demonstrates Understanding Is Patient Going Home on Lovenox? No Metabolic Status- Improve/Maintain Start: 04/11/18 01:53 Freq: QSHIFT Status: Active Target: Protocol: Activity Type Activity Date Activity User E-Sign Co-Sign Detail Recorded Client Recorded Date Recorded By Document 04/11/18 01:54 [id number] [id number] 04/11/18 01:56 [id number] 04/11/18 01:54 PMRU Outcome: Metabolic Status Have Fingersticks Been Ordered Yes Fingerstick Order Frequency AC & HS Outcome/Goals Maintain/ Improve Metabolic Status Demonstrate Knowledge of Prevention/ Treatment of Metabolic Imbalances Mobility- Improve/Maintain Start: 04/10/18 14:07 Freq: DAILY Status: Active Target: Protocol: Activity Type Activity Date Activity User E-Sign Co-Sign Detail Recorded Client Recorded Date Recorded By Document 04/10/18 14:07 [id number] 04/10/18 14:09 [id number] 04/10/18 14:07 PMRU Outcome: Mobility Physical Therapy Evaluation and Yes Treatment Activity OOB with Assistance Yes WBAT Yes Device Yes Assistance Yes Patient to be seen 5x/wk for 60-120 min/ Therex day for: Mobility Training Gait Training Balance Outcome/Goals Maintain/ Achieve Baseline Mobility Status Improve Mobility Status Demonstrates Proper Use of Assistive Devices Free from Complications of Immobility Bed Mobility Yes: independnet Transfers Yes: independent with rollign walker Gait x ft Yes: independent with RW 150' Up/Down Stairs Yes: independent up/ down 15 stairs with 2 rails. Neurological- Improve/Maintain Start: 04/11/18 01:53 Freq: QSHIFT Status: Active Target: Protocol: Activity Type Activity Date Activity User E-Sign Co-Sign Detail Recorded Client Recorded Date Recorded By Document 04/11/18 01:54 [id number] 04/11/18 01:56 [id number] 04/11/18 01:54 PMRU Outcome: Neurological Weakness/Aphasia Weakness Right Side Outcome/Goals Maintain/ Achieve Baseline Neurological Status Maintain/ Improve Strength/ROM Pain/Comfort- Improve/Maintain Start: 04/11/18 01:53 Freq: QSHIFT Status: Active Target: Protocol: Activity Type Activity Date Activity User E-Sign Co-Sign Detail Recorded Client Recorded Date Recorded By Document 04/11/18 01:54 [id number] 04/11/18 01:56 [id number] 04/11/18 01:54 PMRU Outcome: Pain/Comfort Outcome/Goals Demonstrates Knowledge and Use of Available Comfort Measures Achieves Acceptable Comfort/Pain Level as Determined by Patient/Condit Maintain Comfort Level Allowing Patient to Fully Participate in Rehab Outcome/Goals Met Comment denies pain Respiratory - Improve/Maintain Start: 04/11/18 01:53 Freq: QSHIFT Status: Active Target: Protocol: Activity Type Activity Date Activity User E-Sign Co-Sign Detail Recorded Client Recorded Date Recorded By Document 04/11/18 01:54 [id number] [email or web address] 04/11/18 01:56 [id number] 04/11/18 01:54 PMRU Outcome: Respiratory Does Patient Have a Trach No Outcome/Goals Maintain/ Improve O2 Sat per MD Order Outcome/Goals Met Comment Bipap placed Safety- Improve/Maintain Start: 04/11/18 01:53 Freq: QSHIFT Status: Active Target: Protocol: Activity Type Activity Date Activity User E-Sign Co-Sign Detail Recorded Client Recorded Date Recorded By Document 04/11/18 01:54 [id number] 04/11/18 01:56 [id number] 04/11/18 01:54 PMRU Outcome: Safety Outcome/Goals Remain Free of Injury or Harm Prevent Falls/ Injury Medicine Note: Length of Stay: [] Anticipated Discharge Destination: Home Tentative Discharge Date: [] Discharged to: []
[2018-04-11] MEDS: Acetaminophen TAB* 325 MG PO PRN (16:25)
--- NOTE | 2018-04-11 17:20 | PN ---
Progress Note Date of Service: 04/11/18 Note: DEBBIE CAMPBELL was visited. Therapy notes read and reviewed. He was discussed in interdisciplinary plan of care rounds. His right knee has some erythema and warmth that might represent blood. Wound itself looks clean. Will resume 3 mg of Coumadin Current Medications: Active Medications Generic Name Dose Route Start Last Admin Trade Name Freq PRN Reason Stop Dose Admin Acetaminophen 650 mg 04/09/18 16:38 04/11/18 16:25 Tylenol Tab* PO 650 mg Q6H PRN Administration FEVER/PAIN Aspirin 81 mg 04/10/18 09:00 04/11/18 08:38 Aspirin Ec Tab* PO 81 mg DAILY HARRISON Administration Cyclobenzaprine HCl 10 mg 04/09/18 16:48 04/11/18 16:25 Flexeril Tab* PO 10 mg TID PRN Administration SPASMS Dextrose 12.5 gm 04/09/18 16:49 D50w Syringe 50 Ml* IV PUSH .FOR FS < 60 - SS PRN FS < 60 Docusate Sodium 100 mg 04/09/18 21:00 04/11/18 08:38 Colace Cap* PO 100 mg BID HARRISON Administration Finasteride 5 mg 04/10/18 09:00 04/11/18 08:42 Proscar Tab* PO 5 mg DAILY HARRISON Administration Glimepiride 4 mg 04/12/18 09:00 Glimepiride PO DAILY HARRISON Protocol Insulin Glargine 15 units 04/09/18 21:00 04/10/18 21:07 Lantus(*) SUBCUT 15 unit Q24H HARRISON Administration Insulin Human Lispro 0 - 10 units 04/09/18 21:00 04/11/18 12:23 Humalog* SUBCUT 1 units ACHS HARRISON Administration Protocol Magnesium Hydroxide 30 ml 04/09/18 16:38 Milk Of Magnesia Liq* PO Q6H PRN CONSTIPATION Nadolol 20 mg 04/09/18 18:00 04/10/18 17:25 Corgard Tab* PO 20 mg Q24H HARRISON Administration Oxycodone/Acetaminophen 2 tab 04/09/18 16:44 04/11/18 12:22 Percocet 5/325 Tab* PO 2 tab Q4H PRN Administration PAIN - SEVERE Oxycodone/Acetaminophen 1 tab 04/09/18 16:47 04/10/18 21:08 Percocet 5/325 Tab* PO 1 tab Q4H PRN Administration PAIN - MODERATE TO SEVERE Polyvinyl Alcohol 1 drop 04/09/18 16:47 04/10/18 21:06 Polyvinyl Alcohol 1.4% Opth* RIGHT EYE 1 drop Q2H PRN Administration DRY EYE Senna 2 tab 04/09/18 16:38 Senokot Tab* PO BEDTIME PRN CONSTIPATION Torsemide 10 mg 04/10/18 09:00 04/11/18 08:44 Demadex* PO 10 mg DAILY HARRISON Administration Warfarin Sodium 3 mg 04/11/18 17:00 Coumadin Tab(*) PO DAILY@1700 [facility] Protocol Vital Signs: Vital Signs Temp Pulse Resp BP Pulse Ox 98.3 F 57 16 137/58 97 04/11/18 16:12 04/11/18 16:12 04/11/18 16:25 04/11/18 16:12 04/11/18 16:12 Lab Results: Laboratory Results - last 24 hr 04/10/18 04/11/18 04/11/18 20:17 06:53 07:43 INR (Anticoag Therapy) 2.14 H POC Glucose (mg/dL) 236 H 163 H 04/11/18 04/11/18 11:36 16:29 INR (Anticoag Therapy) POC Glucose (mg/dL) 134 H 137 H Exam: LUNGS: Clear HEART: reg rhythm ABDOMEN: Soft EXTREMITIES: Right knee wound C/D/I. Erythema over the patella NEUROLOGIC: alert and oriented. Motor exam non focal Assessment/Plan: 1. Right total knee arthroplasty: WBAT RLE. PT/OT. 2. Diabetes: Lantus/SSI. Will bring in glimepiride from home 3. CAD: ASA/Corgard 4. Hx of Bladder Cancer/Prostatic hypertrophy: Proscar 5. History of DVT: Coumadin. 3 mg tonight 6. Advanced Directives: Full Code 7. Analgesia: Percocet 04/11/18 17:21
[2018-04-11] MEDS: Nadolol TAB* 40 MG PO SCH (17:21)
[2018-04-11] MEDS: Warfarin TAB(*) 3 MG PO SCH (17:21)
[2018-04-11] MEDS: Senna TAB PO PRN (19:44)
[2018-04-11] MEDS: Magnesium Hydroxide LIQ* 30 ML UDC PO PRN (19:44)
[2018-04-11] MEDS: Insulin GLARGINE(*) 1 UNITS UNIT SUBCUT SCH (20:46)
[2018-04-12] MEDS: oxyCODONE/Acetamin 5/325 MG* TAB PO PRN ×5 (04:02→21:27)
[2018-04-12 06:00] LABS: INR 2.49 (0.77-1.02)
[2018-04-12] MEDS: Insulin LISPRO* 1 UNITS UNIT SUBCUT SCH ×4 (08:26→20:14)
[2018-04-12] MEDS: Magnesium Hydroxide LIQ* 30 ML UDC PO PRN (08:27)
[2018-04-12] MEDS: Torsemide TAB* 20 MG PO SCH (08:28)
[2018-04-12] MEDS: Aspirin EC TAB* 81 MG TAB.EC PO SCH (08:29)
[2018-04-12] MEDS: Finasteride TAB* 5 MG PO SCH (08:29)
[2018-04-12] MEDS: Docusate CAP* 100 MG PO SCH ×2 (08:29→20:13)
[2018-04-12] MEDS ORDERED: GLIMEPIRIDE 4 MG PO SCH (09:00)
--- NOTE | 2018-04-12 10:56 | PN ---
Progress Note - Progress Note Date of Service: 04/12/18 SOAP: Subjective: []Patient seen at bedside, PMRU request I see patient due to erythema over patella. Tmax 100.8 and patient has report feeling cold but no necessary report of chills. Per patient he is progressing with physical therapy and knee pain is improving. Objective: [] General: Well appearing, NAD RLE: Mild erythema along the incision and over patella. Incision CDI without discharge. Nursing marked line of erythema yesterday, with erythema receding from this line today. Mildly warm and mildly tender to palpation over the knee. Mild effusion. No induration. Assessment: []SP right total knee arthroplasty Plan: []Continue WBAT, PT/OT Keflex 500 mg TID x 5 days, monitor for worsening redness, pain, discharge, loss of ROM, fever. Will continue to monitor Vital Signs Temp 100.8 F 04/12/18 05:29 Pulse 65 04/12/18 05:29 Resp 18 04/12/18 10:51 BP 140/55 04/12/18 05:29 Pulse Ox 94 04/12/18 08:00 Intake & Output 04/11/18 04/12/18 04/12/18 18:59 06:59 18:59 Intake Total 782 Output Total 650 150 Balance 782 -650 -150 Intake: Oral 782 Output: Urine 650 150 Other: Estimated Void Medium Small # Voids 1 1
[2018-04-12] MEDS: Cyclobenzaprine TAB* 10 MG PO PRN (11:02)
[2018-04-12] MEDS: Cephalexin CAP* 500 MG PO SCH ×2 (14:23→20:13)
[2018-04-12] MEDS: Warfarin TAB(*) 3 MG PO SCH (17:05)
[2018-04-12] MEDS: Nadolol TAB* 40 MG PO SCH (17:24)
[2018-04-12] MEDS: Senna TAB PO PRN (20:13)
[2018-04-12] MEDS: Insulin GLARGINE(*) 1 UNITS UNIT SUBCUT SCH (20:14)
--- NOTE | 2018-04-12 20:23 | PN ---
Progress Note Date of Service: 04/12/18 Note: DEBBIE CAMPBELL was visited. Therapy notes read and reviewed. Appreciate ortho follow up. He seems to be doing well but is not yet ready for discharge. Will monitor how he does in therapy tomorrow. Current Medications: Active Medications Generic Name Dose Route Start Last Admin Trade Name Freq PRN Reason Stop Dose Admin Acetaminophen 650 mg 04/09/18 16:38 04/11/18 16:25 Tylenol Tab* PO 650 mg Q6H PRN Administration FEVER/PAIN Aspirin 81 mg 04/10/18 09:00 04/12/18 08:29 Aspirin Ec Tab* PO 81 mg DAILY HARRISON Administration Cephalexin HCl 500 mg 04/12/18 14:00 04/12/18 20:13 Keflex Cap* PO 04/16/18 23:59 500 mg TID HARRISON Administration Cyclobenzaprine HCl 10 mg 04/09/18 16:48 04/12/18 11:02 Flexeril Tab* PO 10 mg TID PRN Administration SPASMS Dextrose 12.5 gm 04/09/18 16:49 D50w Syringe 50 Ml* IV PUSH .FOR FS < 60 - SS PRN FS < 60 Docusate Sodium 100 mg 04/09/18 21:00 04/12/18 20:13 Colace Cap* PO 100 mg BID HARRISON Administration Finasteride 5 mg 04/10/18 09:00 04/12/18 08:29 Proscar Tab* PO 5 mg DAILY HARRISON Administration Glimepiride 4 mg 04/12/18 09:00 04/12/18 08:27 Glimepiride PO 4 mg DAILY HARRISON Administration Protocol Hydrocortisone 1 applic 04/12/18 21:00 Hytone Cream 1%* TOPICAL BID HARRISON Insulin Glargine 15 units 04/09/18 21:00 04/12/18 20:14 Lantus(*) SUBCUT 15 unit Q24H HARRISON Administration Insulin Human Lispro 0 - 10 units 04/09/18 21:00 04/12/18 20:14 Humalog* SUBCUT 4 units ACHS HARRISON Administration Protocol Magnesium Hydroxide 30 ml 04/09/18 16:38 04/12/18 08:27 Milk Of Magnesia Liq* PO 30 ml Q6H PRN Administration CONSTIPATION Nadolol 20 mg 04/09/18 18:00 04/12/18 17:24 Corgard Tab* PO 20 mg Q24H HARRISON Administration Oxycodone/Acetaminophen 2 tab 04/09/18 16:44 04/12/18 17:05 Percocet 5/325 Tab* PO 2 tab Q4H PRN Administration PAIN - SEVERE Oxycodone/Acetaminophen 1 tab 04/09/18 16:47 04/10/18 21:08 Percocet 5/325 Tab* PO 1 tab Q4H PRN Administration PAIN - MODERATE TO SEVERE Polyvinyl Alcohol 1 drop 04/09/18 16:47 04/10/18 21:06 Polyvinyl Alcohol 1.4% Opth* RIGHT EYE 1 drop Q2H PRN Administration DRY EYE Senna 2 tab 04/09/18 16:38 04/12/18 20:13 Senokot Tab* PO 2 tab BEDTIME PRN Administration CONSTIPATION Torsemide 10 mg 04/10/18 09:00 04/12/18 08:28 Demadex* PO 10 mg DAILY HARRISON Administration Warfarin Sodium 3 mg 04/11/18 17:00 04/12/18 17:05 Coumadin Tab(*) PO 3 mg DAILY@1700 HARRISON Administration Protocol Vital Signs: Vital Signs Temp Pulse Resp BP Pulse Ox 98.5 F 59 18 138/58 98 04/12/18 15:35 04/12/18 15:35 04/12/18 19:27 04/12/18 15:35 04/12/18 17:17 Lab Results: Laboratory Results - last 24 hr 04/11/18 04/12/18 04/12/18 20:13 05:21 07:31 INR (Anticoag Therapy) 2.49 H POC Glucose (mg/dL) 270 H 168 H 04/12/18 04/12/18 04/12/18 11:54 16:31 20:04 INR (Anticoag Therapy) POC Glucose (mg/dL) 135 H 264 H 228 H Exam: LUNGS: Clear HEART: reg rhythm ABDOMEN: Soft EXTREMITIES: Right knee wound C/D/I. Erythema over the patella NEUROLOGIC: alert and oriented. Motor exam non focal Assessment/Plan: 1. Right total knee arthroplasty: WBAT RLE. PT/OT. 2. Diabetes: Glimepiride/Lantus/SSI. 3. CAD: ASA/Corgard 4. Hx of Bladder Cancer/Prostatic hypertrophy: Proscar 5. History of DVT: Coumadin. 3 mg tonight 6. Advanced Directives: Full Code 7. Analgesia: Percocet 04/12/18 20:24
[2018-04-12] MEDS: GLIMEPIRIDE 4 MG PO SCH (21:27)
[2018-04-12] MEDS: Hydrocortisone 1% CREAM* 30 GM TUBE TOPICAL SCH (21:31)
[2018-04-13] MEDS: Cyclobenzaprine TAB* 10 MG PO PRN ×2 (00:17→11:05)
[2018-04-13] MEDS: oxyCODONE/Acetamin 5/325 MG* TAB PO PRN ×4 (04:17→19:00)
[2018-04-13] MEDS: Insulin LISPRO* 1 UNITS UNIT SUBCUT SCH ×4 (08:04→21:00)
[2018-04-13] MEDS: Cephalexin CAP* 500 MG PO SCH ×3 (08:06→20:58)
[2018-04-13] MEDS: GLIMEPIRIDE 4 MG PO SCH ×2 (08:06→20:59)
[2018-04-13] MEDS: Aspirin EC TAB* 81 MG TAB.EC PO SCH (08:07)
[2018-04-13] MEDS: Docusate CAP* 100 MG PO SCH ×2 (08:07→21:02)
[2018-04-13] MEDS: Finasteride TAB* 5 MG PO SCH (08:07)
[2018-04-13] MEDS: Torsemide TAB* 20 MG PO SCH (08:07)
[2018-04-13] MEDS: Hydrocortisone 1% CREAM* 30 GM TUBE TOPICAL SCH ×2 (08:11→22:20)
--- NOTE | 2018-04-13 11:14 | PN ---
Progress Note - Progress Note Date of Service: 04/13/18 SOAP: Subjective: []Patient seen at bedside. He was afebrile overnight. He is tolerating keflex well and has no worsening of knee pain. Objective: [] General: Well appearing, NAD RLE: Mild erythema along the incision and over patella which is decreased from yesterday. Incision CDI without discharge. Mildly warm and mildly tender to palpation over the knee. Mild effusion. No induration or fluctuance . Assessment: []SP right total knee arthroplasty Plan: []Continue WBAT, PT/OT Keflex 500 mg TID x 5 days (start 04/12/18), monitor for worsening redness, pain , discharge, loss of ROM, fever. Will continue to monitor
[2018-04-13] MEDS ORDERED: oxyCODONE SR TAB(*) 15 MG TAB.SR PO ONE (11:16)
[2018-04-13] MEDS: Nadolol TAB* 40 MG PO SCH (17:55)
[2018-04-13] MEDS: Warfarin TAB(*) 3 MG PO SCH (17:55)
--- NOTE | 2018-04-13 18:57 | PN ---
Progress Note Date of Service: 04/13/18 Note: DEBBIE CAMPBELL was visited. Therapy notes read and reviewed. He has been having a lot of pain in the knee. He seems nearing ready to go home. Pain is hampering his ADLs. Will add OxyContin. Will add in Metformin, he was on this prior to surgery Current Medications: Active Medications Generic Name Dose Route Start Last Admin Trade Name Freq PRN Reason Stop Dose Admin Acetaminophen 650 mg 04/09/18 16:38 04/11/18 16:25 Tylenol Tab* PO 650 mg Q6H PRN Administration FEVER/PAIN Aspirin 81 mg 04/10/18 09:00 04/13/18 08:07 Aspirin Ec Tab* PO 81 mg DAILY HARRISON Administration Cephalexin HCl 500 mg 04/12/18 14:00 04/13/18 14:19 Keflex Cap* PO 04/16/18 23:59 500 mg TID HARRISON Administration Cyclobenzaprine HCl 10 mg 04/09/18 16:48 04/13/18 11:05 Flexeril Tab* PO 10 mg TID PRN Administration SPASMS Dextrose 12.5 gm 04/09/18 16:49 D50w Syringe 50 Ml* IV PUSH .FOR FS < 60 - SS PRN FS < 60 Docusate Sodium 100 mg 04/09/18 21:00 04/13/18 08:07 Colace Cap* PO 100 mg BID HARRISON Administration Finasteride 5 mg 04/10/18 09:00 04/13/18 08:07 Proscar Tab* PO 5 mg DAILY HARRISON Administration Glimepiride 4 mg 04/12/18 21:00 04/13/18 08:06 Glimepiride PO 4 mg BID HARRISON Administration Protocol Hydrocortisone 1 applic 04/12/18 21:00 04/13/18 08:11 Hytone Cream 1%* TOPICAL 1 applic BID HARRISON Administration Insulin Glargine 15 units 04/09/18 21:00 04/12/18 20:14 Lantus(*) SUBCUT 15 unit Q24H HARRISON Administration Insulin Human Lispro 0 - 10 units 04/09/18 21:00 04/13/18 17:57 Humalog* SUBCUT 4 units ACHS HARRISON Administration Protocol Lactulose 30 ml 04/13/18 11:13 04/13/18 12:29 Lactulose* PO 30 ml Q6H PRN Administration CONSTIPATION Magnesium Hydroxide 30 ml 04/09/18 16:38 04/12/18 08:27 Milk Of Magnesia Liq* PO 30 ml Q6H PRN Administration CONSTIPATION Nadolol 20 mg 04/09/18 18:00 04/13/18 17:55 Corgard Tab* PO 20 mg Q24H HARRISON Administration Oxycodone HCl 20 mg 04/13/18 21:00 Oxycontin(*) PO Q12HR HARRISON Oxycodone/Acetaminophen 2 tab 04/09/18 16:44 04/13/18 14:21 Percocet 5/325 Tab* PO 2 tab Q4H PRN Administration PAIN - SEVERE Oxycodone/Acetaminophen 1 tab 04/09/18 16:47 04/10/18 21:08 Percocet 5/325 Tab* PO 1 tab Q4H PRN Administration PAIN - MODERATE TO SEVERE Polyvinyl Alcohol 1 drop 04/09/18 16:47 04/10/18 21:06 Polyvinyl Alcohol 1.4% Opth* RIGHT EYE 1 drop Q2H PRN Administration DRY EYE Senna 2 tab 04/09/18 16:38 04/12/18 20:13 Senokot Tab* PO 2 tab BEDTIME PRN Administration CONSTIPATION Torsemide 10 mg 04/10/18 09:00 04/13/18 08:07 Demadex* PO 10 mg DAILY HARRISON Administration Warfarin Sodium 3 mg 04/11/18 17:00 04/13/18 17:55 Coumadin Tab(*) PO 3 mg DAILY@1700 HARRISON Administration Protocol Vital Signs: Vital Signs Temp Pulse Resp BP Pulse Ox 98.9 F 69 22 138/59 100 04/13/18 15:58 04/13/18 15:58 04/13/18 15:58 04/13/18 15:58 04/13/18 15:58 Lab Results: Laboratory Results - last 24 hr 04/12/18 04/13/18 04/13/18 20:04 07:06 12:08 POC Glucose (mg/dL) 228 H 149 H 147 H 04/13/18 16:34 POC Glucose (mg/dL) 201 H Exam: LUNGS: Clear HEART: reg rhythm ABDOMEN: Soft EXTREMITIES: Right knee wound C/D/I. Erythema over the patella NEUROLOGIC: alert and oriented. Motor exam non focal Assessment/Plan: 1. Right total knee arthroplasty: WBAT RLE. PT/OT. 2. Diabetes: Glimepiride/Lantus/SSI. Will resume Metformin 3. CAD: ASA/Corgard 4. Hx of Bladder Cancer/Prostatic hypertrophy: Proscar 5. History of DVT: Coumadin. 3 mg tonight 6. Advanced Directives: Full Code 7. Analgesia: Percocet 04/13/18 18:57 04/13/18 19:01
[2018-04-13] MEDS: oxyCODONE SR TAB(*) 20 MG TAB.SR PO SCH (20:59)
[2018-04-13] MEDS ORDERED: oxyCODONE SR TAB(*) 15 MG TAB.SR PO SCH (21:00)
[2018-04-13] MEDS: Insulin GLARGINE(*) 1 UNITS UNIT SUBCUT SCH (21:01)
[2018-04-14 06:46] LABS: INR 2.54 (0.77-1.02)
[2018-04-14] MEDS: Insulin LISPRO* 1 UNITS UNIT SUBCUT SCH ×4 (07:20→21:17)
[2018-04-14] MEDS: Hydrocortisone 1% CREAM* 30 GM TUBE TOPICAL SCH ×2 (08:34→19:28)
[2018-04-14] MEDS: Aspirin EC TAB* 81 MG TAB.EC PO SCH (08:35)
[2018-04-14] MEDS: Finasteride TAB* 5 MG PO SCH (08:35)
[2018-04-14] MEDS: Cephalexin CAP* 500 MG PO SCH ×3 (08:35→21:15)
[2018-04-14] MEDS: metFORMIN* 500 MG TAB PO SCH ×2 (08:35→17:39)
[2018-04-14] MEDS: oxyCODONE SR TAB(*) 20 MG TAB.SR PO SCH (08:37)
[2018-04-14] MEDS: Docusate CAP* 100 MG PO SCH ×2 (08:40→21:16)
[2018-04-14] MEDS: Torsemide TAB* 20 MG PO SCH (08:51)
[2018-04-14] MEDS: GLIMEPIRIDE 4 MG PO SCH ×2 (08:52→21:16)
--- NOTE | 2018-04-14 09:06 | PN ---
Progress Note - Progress Note Date of Service: 04/14/18 SOAP: Subjective: Patient seen at bedside. He was afebrile overnight. He is tolerating keflex well and has no worsening of knee pain. Objective: General: Well appearing, NAD RLE: Mild erythema along the incision and over patella which is decreased from yesterday, there is a marking with a skin marker and it had receded from this . Incision CDI without discharge. Mildly warm and mildly tender to palpation over the knee. Mild effusion. No induration or fluctuance . Assessment: SP right total knee arthroplasty Plan: Continue WBAT, PT/OT Keflex 500 mg TID x 5 days (start 04/12/18), monitor for worsening redness, pain , discharge, loss of ROM, fever. Will continue to monitor
--- NOTE | 2018-04-14 10:20 | PN ---
Progress Note Date of Service: 04/14/18 Note: DEBBIE CAMPBELL was visited. Nursing and therapy notes read and reviewed. This morning he has concerns about d/c and is refusing to go. Requesting subacute rehab. No chest pain, shortness of breath or abdominal pain. Concerned about right leg swelling. Current Medications: Active Medications Generic Name Dose Route Start Last Admin Trade Name Freq PRN Reason Stop Dose Admin Acetaminophen 650 mg 04/09/18 16:38 04/11/18 16:25 Tylenol Tab* PO 650 mg Q6H PRN Administration FEVER/PAIN Aspirin 81 mg 04/10/18 09:00 04/14/18 08:35 Aspirin Ec Tab* PO 81 mg DAILY HARRISON Administration Cephalexin HCl 500 mg 04/12/18 14:00 04/14/18 08:35 Keflex Cap* PO 04/16/18 23:59 500 mg TID HARRISON Administration Cyclobenzaprine HCl 10 mg 04/09/18 16:48 04/13/18 11:05 Flexeril Tab* PO 10 mg TID PRN Administration SPASMS Dextrose 12.5 gm 04/09/18 16:49 D50w Syringe 50 Ml* IV PUSH .FOR FS < 60 - SS PRN FS < 60 Docusate Sodium 100 mg 04/09/18 21:00 04/14/18 08:40 Colace Cap* PO Not Given BID HARRISON Finasteride 5 mg 04/10/18 09:00 04/14/18 08:35 Proscar Tab* PO 5 mg DAILY HARRISON Administration Glimepiride 4 mg 04/12/18 21:00 04/14/18 08:52 Glimepiride PO 4 mg BID HARRISON Administration Protocol Hydrocortisone 1 applic 04/12/18 21:00 04/14/18 08:34 Hytone Cream 1%* TOPICAL 1 applic BID HARRISON Administration Insulin Glargine 15 units 04/09/18 21:00 04/13/18 21:01 Lantus(*) SUBCUT 15 unit Q24H HARRISON Administration Insulin Human Lispro 0 - 10 units 04/09/18 21:00 04/14/18 07:20 Humalog* SUBCUT 1 units ACHS HARRISON Administration Protocol Lactulose 30 ml 04/13/18 11:13 04/13/18 12:29 Lactulose* PO 30 ml Q6H PRN Administration CONSTIPATION Magnesium Hydroxide 30 ml 04/09/18 16:38 04/12/18 08:27 Milk Of Magnesia Liq* PO 30 ml Q6H PRN Administration CONSTIPATION Metformin HCl 500 mg 04/14/18 08:00 04/14/18 08:35 Glucophage* PO 500 mg 0800,1700 HARRISON Administration Nadolol 20 mg 04/09/18 18:00 04/13/18 17:55 Corgard Tab* PO 20 mg Q24H HARRISON Administration Oxycodone HCl 20 mg 04/13/18 21:00 04/14/18 08:37 Oxycontin(*) PO 20 mg Q12HR HARRISON Administration Oxycodone/Acetaminophen 2 tab 04/09/18 16:44 04/13/18 19:00 Percocet 5/325 Tab* PO 2 tab Q4H PRN Administration PAIN - SEVERE Oxycodone/Acetaminophen 1 tab 04/09/18 16:47 04/10/18 21:08 Percocet 5/325 Tab* PO 1 tab Q4H PRN Administration PAIN - MODERATE TO SEVERE Polyvinyl Alcohol 1 drop 04/09/18 16:47 04/10/18 21:06 Polyvinyl Alcohol 1.4% Opth* RIGHT EYE 1 drop Q2H PRN Administration DRY EYE Senna 2 tab 04/09/18 16:38 04/12/18 20:13 Senokot Tab* PO 2 tab BEDTIME PRN Administration CONSTIPATION Torsemide 10 mg 04/10/18 09:00 04/14/18 08:51 Demadex* PO 10 mg DAILY HARRISON Administration Warfarin Sodium 3 mg 04/11/18 17:00 04/13/18 17:55 Coumadin Tab(*) PO 3 mg DAILY@1700 HARRISON Administration Protocol Vital Signs: Vital Signs Temp Pulse Resp BP Pulse Ox 98.3 F 73 16 155/58 100 04/14/18 06:39 04/14/18 06:39 04/14/18 08:37 04/14/18 06:54 04/14/18 06:39 Lab Results: Laboratory Results - last 24 hr 04/13/18 04/13/18 04/13/18 12:08 16:34 20:26 INR (Anticoag Therapy) POC Glucose (mg/dL) 147 H 201 H 253 H 04/14/18 04/14/18 06:16 07:24 INR (Anticoag Therapy) 2.54 H POC Glucose (mg/dL) 131 H Exam: GEN: no acute distress. alert and appropriate LUNGS: Clear to auscultation bilaterally HEART: regular rate and rhythm ABDOMEN: + bowel sounds, soft, non-tender, non-distended EXTREMITIES: Right knee wound C/D/I. Erythema is less than markered off area. Edema in lower leg with calf pain. NEUROLOGIC: BLE motor 5/5 with limited testing of right knee secondary to pain. Normal sensation. Assessment/Plan: 1. Right total knee arthroplasty: WBAT RLE. PT/OT. f/u with Dr. Caballero 2. Diabetes: Glimepiride/Lantus/SSI. Will resumed Metformin 3. CAD: ASA/Corgard 4. Hx of Bladder Cancer/Prostatic hypertrophy: Proscar 5. History of DVT: Coumadin. 3 mg qpm. Will check venous doppler of RLE. Already therapeutic on coumadin. 6. Advanced Directives: Full Code 7. Analgesia: Percocet and oxycontin 8. Dispo: Was planned for d/c today. Getting [facility] screen. If he does not qualify for subacute rehab he is aware he is likely to get a cut off letter for d/c. We discussed options for hiring help at home or paying for NH out of pocket if he wants more help. 04/14/18 10:17 04/14/18 10:20
--- NOTE | 2018-04-14 15:50 | RAD ---
INDICATION: Pain and swelling. COMPARISON: December 14, 2013 TECHNIQUE: Duplex interrogation of the Lowerextremity was performed. FINDINGS: Deep veins: The common femoral, great saphenous, profunda femoris, proximal, mid, and distal deep femoral, popliteal, posterior tibial, and peroneal veins were interrogated. There is nonocclusive thrombus within involving the adductor canal, popliteal vein and proximal tibial veins. There is no occlusive thrombus. The remaining deep structures demonstrate normal compressibility, augmentation, and phasic flow. Superficial veins: There are no findings of superficial thrombophlebitis. Popliteal fossa:There is no evidence of a popliteal cyst. Soft tissues:There is edema which leads to some limitations.. IMPRESSION: DEEP VENOUS THROMBOSIS. Findings called to floor.
[2018-04-14] MEDS: Warfarin TAB(*) 3 MG PO SCH (17:39)
[2018-04-14] MEDS: Nadolol TAB* 40 MG PO SCH (17:39)
[2018-04-14] MEDS: oxyCODONE/Acetamin 5/325 MG* TAB PO PRN (19:28)
[2018-04-14 19:52] LABS: Urine Appearance Clear; Urine Blood Negative (Negative); Urine Color Yellow; Urine Ketones Negative (Negative); Urine Protein Negative (Negative); Urine Specific Gravity 1.009 (1.010-1.030); Urine Urobilinogen Negative (Negative)
[2018-04-14] MEDS: oxyCODONE SR TAB(*) 10 MG TAB.SR PO SCH (21:16)
[2018-04-14] MEDS: Insulin GLARGINE(*) 1 UNITS UNIT SUBCUT SCH (21:17)
[2018-04-15] MEDS: oxyCODONE/Acetamin 5/325 MG* TAB PO PRN ×4 (04:12→21:38)
[2018-04-15] MEDS: metFORMIN* 500 MG TAB PO SCH ×2 (08:23→17:39)
[2018-04-15] MEDS: Cephalexin CAP* 500 MG PO SCH ×3 (08:23→21:05)
[2018-04-15] MEDS: GLIMEPIRIDE 4 MG PO SCH ×2 (08:23→21:06)
[2018-04-15] MEDS: Docusate CAP* 100 MG PO SCH ×2 (08:24→21:05)
[2018-04-15] MEDS: oxyCODONE SR TAB(*) 10 MG TAB.SR PO SCH ×2 (08:24→21:05)
[2018-04-15] MEDS: Aspirin EC TAB* 81 MG TAB.EC PO SCH (08:24)
[2018-04-15] MEDS: Finasteride TAB* 5 MG PO SCH (08:25)
[2018-04-15] MEDS: Torsemide TAB* 20 MG PO SCH (08:25)
[2018-04-15] MEDS: Insulin LISPRO* 1 UNITS UNIT SUBCUT SCH ×4 (08:26→20:56)
[2018-04-15 10:27] LABS: Corrected Retic Count 2.1 % (0.5-1.5); Hematocrit for Retic CNT 30 % (42-52); Immature Retic Fraction 0.54
--- NOTE | 2018-04-15 11:04 | PN ---
Progress Note Date of Service: 04/15/18 Note: DEBBIE CAMPBELL was visited. Nursing and therapy notes read and reviewed. No chest pain, shortness of breath or abdominal pain. Has not had incontinence this morning. He may have slept better last night, but otherwise not aware if Oxycontin made a difference for his pain. Discussed some morning confusion yesterday and decreasing dose of oxycontin last night. Current Medications: Active Medications Generic Name Dose Route Start Last Admin Trade Name Freq PRN Reason Stop Dose Admin Acetaminophen 650 mg 04/09/18 16:38 04/11/18 16:25 Tylenol Tab* PO 650 mg Q6H PRN Administration FEVER/PAIN Aspirin 81 mg 04/10/18 09:00 04/15/18 08:24 Aspirin Ec Tab* PO 81 mg DAILY HARRISON Administration Cephalexin HCl 500 mg 04/12/18 14:00 04/15/18 08:23 Keflex Cap* PO 04/16/18 23:59 500 mg TID HARRISON Administration Cyclobenzaprine HCl 10 mg 04/09/18 16:48 04/13/18 11:05 Flexeril Tab* PO 10 mg TID PRN Administration SPASMS Dextrose 12.5 gm 04/09/18 16:49 D50w Syringe 50 Ml* IV PUSH .FOR FS < 60 - SS PRN FS < 60 Docusate Sodium 100 mg 04/09/18 21:00 04/15/18 08:24 Colace Cap* PO 100 mg BID HARRISON Administration Finasteride 5 mg 04/10/18 09:00 04/15/18 08:25 Proscar Tab* PO 5 mg DAILY HARRISON Administration Glimepiride 4 mg 04/12/18 21:00 04/15/18 08:23 Glimepiride PO 4 mg BID HARRISON Administration Protocol Hydrocortisone 1 applic 04/12/18 21:00 04/14/18 19:28 Hytone Cream 1%* TOPICAL 1 applic BID HARRISON Administration Insulin Glargine 15 units 04/09/18 21:00 04/14/18 21:17 Lantus(*) SUBCUT 15 unit Q24H HARRISON Administration Insulin Human Lispro 0 - 10 units 04/09/18 21:00 04/15/18 08:26 Humalog* SUBCUT 2 units ACHS HARRISON Administration Protocol Lactulose 30 ml 04/13/18 11:13 04/13/18 12:29 Lactulose* PO 30 ml Q6H PRN Administration CONSTIPATION Magnesium Hydroxide 30 ml 04/09/18 16:38 04/12/18 08:27 Milk Of Magnesia Liq* PO 30 ml Q6H PRN Administration CONSTIPATION Metformin HCl 500 mg 04/14/18 08:00 04/15/18 08:23 Glucophage* PO 500 mg 0800,1700 HARRISON Administration Nadolol 20 mg 04/09/18 18:00 04/14/18 17:39 Corgard Tab* PO 20 mg Q24H HARRISON Administration Oxycodone HCl 10 mg 04/14/18 21:00 04/15/18 08:24 Oxycontin(*) PO 10 mg Q12HR HARRISON Administration Oxycodone/Acetaminophen 2 tab 04/09/18 16:44 04/15/18 10:42 Percocet 5/325 Tab* PO 2 tab Q4H PRN Administration PAIN - SEVERE Oxycodone/Acetaminophen 1 tab 04/09/18 16:47 04/10/18 21:08 Percocet 5/325 Tab* PO 1 tab Q4H PRN Administration PAIN - MODERATE TO SEVERE Polyvinyl Alcohol 1 drop 04/09/18 16:47 04/10/18 21:06 Polyvinyl Alcohol 1.4% Opth* RIGHT EYE 1 drop Q2H PRN Administration DRY EYE Senna 2 tab 04/09/18 16:38 04/12/18 20:13 Senokot Tab* PO 2 tab BEDTIME PRN Administration CONSTIPATION Torsemide 10 mg 04/10/18 09:00 04/15/18 08:25 Demadex* PO 10 mg DAILY HARRISON Administration Warfarin Sodium 3 mg 04/11/18 17:00 04/14/18 17:39 Coumadin Tab(*) PO 3 mg DAILY@1700 HARRISON Administration Protocol Vital Signs: Vital Signs Temp Pulse Resp BP Pulse Ox 98.1 F 60 18 154/64 96 04/15/18 04:36 04/15/18 04:36 04/15/18 10:42 04/15/18 04:36 04/15/18 08:05 Lab Results: Laboratory Results - last 24 hr 04/14/18 04/14/18 04/14/18 12:18 16:28 19:30 RBC (Retic) HCT (Retic) Retic Count, Calc Corrected Retic Count Retic Shift Factor Retic Production Index Immature Retic Fraction Mean Retic Volume POC Glucose (mg/dL) 182 H 167 H Urine Color Yellow Urine Appearance Clear Urine pH 6.0 Ur Specific [place] 1.009 L Urine Protein Negative Urine Ketones Negative Urine Blood Negative Urine Nitrate Negative Urine Bilirubin Negative Urine Urobilinogen Negative Ur Leukocyte Esterase Negative Urine Glucose 1+(50 mg/dl) A Direct Antiglob Test 04/14/18 04/15/18 04/15/18 20:20 07:30 10:17 RBC (Retic) 3.20 L HCT (Retic) 30 L Retic Count, Calc 3.2 H Corrected Retic Count 2.1 H Retic Shift Factor 1.5 Retic Production Index 1.40 Immature Retic Fraction 0.54 Mean Retic Volume 126.4 POC Glucose (mg/dL) 183 H 151 H Urine Color Urine Appearance Urine pH Ur Specific [place] Urine Protein Urine Ketones Urine Blood Urine Nitrate Urine Bilirubin Urine Urobilinogen Ur Leukocyte Esterase Urine Glucose Direct Antiglob Test 04/15/18 10:17 RBC (Retic) HCT (Retic) Retic Count, Calc Corrected Retic Count Retic Shift Factor Retic Production Index Immature Retic Fraction Mean Retic Volume POC Glucose (mg/dL) Urine Color Urine Appearance Urine pH Ur Specific [place] Urine Protein Urine Ketones Urine Blood Urine Nitrate Urine Bilirubin Urine Urobilinogen Ur Leukocyte Esterase Urine Glucose Direct Antiglob Test Negative Exam: GEN: no acute distress. alert and appropriate LUNGS: Clear to auscultation bilaterally HEART: regular rate and rhythm ABDOMEN: + bowel sounds, soft, non-tender, non-distended EXTREMITIES: Right knee wound C/D/I. Erythema is less and more dulled. Edema in lower leg. Pain is more over tibialis anterior. NEUROLOGIC: BLE motor 5/5 with limited testing of right knee secondary to pain. Normal sensation. RLE Venous dopper on 04/14/18 showed non-occlusive thrombus at the right adductor canal, right popliteal and proximal tibial veins. Assessment/Plan: 1. Right total knee arthroplasty: WBAT RLE. PT/OT. f/u with Dr. Caballero 2. Diabetes: Glimepiride/Metformin/Lantus/SSI. 3. CAD: ASA/Corgard 4. Hx of Bladder Cancer/Prostatic hypertrophy: Proscar 5. Non-occlusive DVT and h/o DVT in 2006: Heme/Onc consult with h/o lymphoma. Seen by Dr. Land this morning. Will repeat doppler tomorrow morning and see if thrombus is progressive. For now continue Coumadin 3 mg qpm. 6. Advanced Directives: Full Code 7. Analgesia: Percocet prn. I d/w him d/c oxycontin completely. He is hesitant. Will see how today goes. 8. Dispo: Accepted to [facility] for Tuesday which is his preference. d/c tuesday. 04/15/18 11:04
[2018-04-15] MEDS: Hydrocortisone 1% CREAM* 30 GM TUBE TOPICAL SCH ×2 (11:05→21:04)
--- NOTE | 2018-04-15 13:36 | CONS ---
AMENDED REPORT NOW INCLUDES DATE OF CONSULT - ESIGNED BEFORE ADJUSTMENT CONSULTATION REPORT: DATE OF CONSULT: 04/15/18 REASON FOR CONSULT: DVT. HISTORY OF PRESENT ILLNESS: An 78-year-old male with history of DVTs in the right lower extremity. He had a total of 7 events and has subsequently been on long-term anticoagulation with warfarin. No known thrombosis since starting long-term anticoagulation. He does have chronic swelling in the right lower extremity, although it has been quite manageable. He came in for an elective right knee replacement, which was done on 04/06/18 without significant difficulty. His Coumadin was paused for the surgery, then restarted with Lovenox bridge. He had Lovenox for 5 days after surgery, the last dose being on 04/10/18, but he was on 40 mg a day. Coumadin was started immediately after surgery and he had a therapeutic INR as of 04/08/18. He developed some redness and swelling at the incision on 04/12/18 and exam was consistent with cellulitis. He was started on Keflex and the redness has improved. He also developed increasing swelling in the right lower extremity. He had an ultrasound done on 04/14/18, which showed thrombosis in the distal left femoral vein and some echogenicity in the popliteal vein on the right side. While he has had multiple DVTs in the past in the right, we do not have a right-sided ultrasound at [facility] for comparison and determinate as to acute versus chronic thrombosis. He has had little bit of pain in the leg, but it is dominated by his knee surgery. PAST MEDICAL HISTORY: 1. Non-Hodgkin's lymphoma, diagnosed in 1997 and treated with chemotherapy. He has had chronic anemia since treatment and I feel like he never fully recovered. 2. Anemia. Seen in 2011 in our clinic. He has a mild macrocytic anemia. Workup in the past has essentially been negative. He is followed and has been stable. 3. Chronic vertebral fractures with vertebroplasty in the past. 4. Osteoarthritis. 5. Congestive heart failure. 6. Coronary artery disease. 7. Five-vessel CABG. 8. Stents in 2009. 9. Type 2 diabetes. 10. Hyperlipidemia. 11. Hypertension. 12. Spinal stenosis. PAST SURGICAL HISTORY: 1. Knee surgery as mentioned above. 2. Vel filter placed remotely in the past, but actually he does not know whether or not it was ever removed. 3. Spine surgery. 4. Coronary artery bypass graft. MEDICATIONS: At this time, he is on: 1. Acetaminophen 650 mg q.6 p.r.n. 2. Aspirin 81 mg a day. 3. Keflex 500 t.i.d. 4. Flexeril 10 mg t.i.d. 5. Colace daily. 6. Proscar 5 mg daily. 7. Glimepiride 4 mg b.i.d. 8. Lantus 15 units subcu daily. 9. Lactulose 30 p.r.n. 10. Glucophage 500 mg p.o. b.i.d. 11. Nadolol 20 mg daily. 12. Oxycodone 10 mg q.4 p.r.n. 13. Senna 2 tabs at bedtime. 14. Torsemide 10 mg daily. 15. Warfarin 3 mg daily. FAMILY HISTORY: Coronary artery disease. No malignancy, no history of thrombosis. SOCIAL HISTORY: He is , lives alone in [address] apartment, but he has children in the area and relatives nearby. He is a nonsmoker, no alcohol. 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 REVIEW OF SYSTEMS: A 14-point review completed. He has some constipation, fatigue that has been chronic. He has had several night sweats recently. No shortness of breath. No cardiac symptoms. He is urinating reasonably well. He has knee pain and still has some chronic back pain. Skin changes associated with his infection. He tolerated Coumadin with no easy bruising or bleeding. A 14-point otherwise reviewed and negative. PHYSICAL EXAM: Vital Signs: BP 134/64, pulse 60, respirations 16, temperature 98.1. HEENT: Conjunctiva slightly pale. Mucosa moist. No lymphadenopathy. Lungs: Clear to auscultation. Heart: Regular rate and rhythm. S1, S2. Slight systolic murmur. Abdomen: Nontender, nondistended. No hepatosplenomegaly. Good bowel sounds. Extremities: He has erythema around the incision from the right total knee replacement. He has +2 edema in the right lower extremity and trace edema in the left lower extremity. He has good pulses x4. Neurologic: Alert and oriented x3. LABORATORY DATA: INR 2.54. Hemoglobin 11.1, white count 7.6, platelets 246 and he has slightly elevated MCV of 95, haptoglobin 281 in 2013. Chemistry shows a creatinine of 1.08. Normal liver function. B12 of 47 back in 2013. 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 I suspect the edema is secondary to inflammation and his surgery and that the deep venous thromboses are chronic. Differential diagnosis also includes acute deep venous thrombosis postoperatively. He was bridged with Lovenox, but per the records, I can see only 40 mg daily. It is possible he developed perioperative DVT prior to having a therapeutic INR. INR therapeutic for past several days. Could have failure of Coumadin, though I think this is less likely. 1. Deep venous thrombosis . At this point, he should continue with Coumadin and monitor INR closely. I agree to repeat the ultrasound prior to discharge to assure stability. We will see him in clinic after discharge and consider transition to another oral anticoagulant in the future. 2. Vel filter in 1998. At this point, it had not been removed, we would not remove it. It is also not clear that it would be functional preventing pulmonary embolism at this time. We will likely get an abdominal x- ray from clinic. We will see him in followup. 3. Anemia. We will recheck some basic labs including a B12, retic count, and a Reza. We will likely follow. 4. We will follow up in clinic after discharge. He can call our office with additional swelling in the legs once he goes home. [id number]/[facility] #: [id number] MTDBiju
[2018-04-15] MEDS: Warfarin TAB(*) 3 MG PO SCH (17:39)
[2018-04-15] MEDS: Nadolol TAB* 40 MG PO SCH (18:59)
[2018-04-15] MEDS: Insulin GLARGINE(*) 1 UNITS UNIT SUBCUT SCH (21:07)
[2018-04-15] MEDS: Cyclobenzaprine TAB* 10 MG PO PRN (23:36)
[2018-04-16] MEDS: oxyCODONE/Acetamin 5/325 MG* TAB PO PRN ×4 (05:43→22:32)
[2018-04-16] MEDS: Insulin LISPRO* 1 UNITS UNIT SUBCUT SCH ×4 (07:33→22:34)
[2018-04-16] MEDS: GLIMEPIRIDE 4 MG PO SCH ×2 (08:03→22:32)
[2018-04-16] MEDS: Torsemide TAB* 20 MG PO SCH (08:04)
[2018-04-16] MEDS: oxyCODONE SR TAB(*) 10 MG TAB.SR PO SCH (08:04)
[2018-04-16] MEDS: Docusate CAP* 100 MG PO SCH ×2 (08:04→22:32)
[2018-04-16] MEDS: metFORMIN* 500 MG TAB PO SCH ×2 (08:05→17:38)
[2018-04-16] MEDS: Cephalexin CAP* 500 MG PO SCH ×3 (08:05→22:32)
[2018-04-16] MEDS: Aspirin EC TAB* 81 MG TAB.EC PO SCH (08:05)
[2018-04-16] MEDS: Finasteride TAB* 5 MG PO SCH (08:06)
[2018-04-16] MEDS: Hydrocortisone 1% CREAM* 30 GM TUBE TOPICAL SCH ×2 (10:32→22:37)
--- NOTE | 2018-04-16 10:59 | PN ---
Progress Note Date of Service: 04/16/18 Note: DEBBIE CAMPBELL was visited. Nursing notes read and reviewed. No incontinence yesterday. Despite oxycontin takes same amount of percocet and same level of pain. No chest pain, shortness of breath or abdominal pain. Current Medications: Active Medications Generic Name Dose Route Start Last Admin Trade Name Freq PRN Reason Stop Dose Admin Acetaminophen 650 mg 04/09/18 16:38 04/11/18 16:25 Tylenol Tab* PO 650 mg Q6H PRN Administration FEVER/PAIN Aspirin 81 mg 04/10/18 09:00 04/16/18 08:05 Aspirin Ec Tab* PO 81 mg DAILY HARRISON Administration Cephalexin HCl 500 mg 04/12/18 14:00 04/16/18 08:05 Keflex Cap* PO 04/16/18 23:59 500 mg TID HARRISON Administration Cyclobenzaprine HCl 10 mg 04/09/18 16:48 04/15/18 23:36 Flexeril Tab* PO 10 mg TID PRN Administration SPASMS Dextrose 12.5 gm 04/09/18 16:49 D50w Syringe 50 Ml* IV PUSH .FOR FS < 60 - SS PRN FS < 60 Docusate Sodium 100 mg 04/09/18 21:00 04/16/18 08:04 Colace Cap* PO 100 mg BID HARRISON Administration Finasteride 5 mg 04/10/18 09:00 04/16/18 08:06 Proscar Tab* PO 5 mg DAILY HARRISON Administration Glimepiride 4 mg 04/12/18 21:00 04/16/18 08:03 Glimepiride PO 4 mg BID HARRISON Administration Protocol Hydrocortisone 1 applic 04/12/18 21:00 04/16/18 10:32 Hytone Cream 1%* TOPICAL 1 applic BID HARRISON Administration Insulin Glargine 15 units 04/09/18 21:00 04/15/18 21:07 Lantus(*) SUBCUT 15 unit Q24H HARRISON Administration Insulin Human Lispro 0 - 10 units 04/09/18 21:00 04/16/18 07:33 Humalog* SUBCUT Not Given ACHS HARRISON Protocol Lactulose 30 ml 04/13/18 11:13 04/13/18 12:29 Lactulose* PO 30 ml Q6H PRN Administration CONSTIPATION Magnesium Hydroxide 30 ml 04/09/18 16:38 04/12/18 08:27 Milk Of Magnesia Liq* PO 30 ml Q6H PRN Administration CONSTIPATION Metformin HCl 500 mg 04/14/18 08:00 04/16/18 08:05 Glucophage* PO 500 mg 0800,1700 HARRISON Administration Nadolol 20 mg 04/09/18 18:00 04/15/18 18:59 Corgard Tab* PO 20 mg Q24H HARRISON Administration Oxycodone HCl 10 mg 04/14/18 21:00 04/16/18 08:04 Oxycontin(*) PO 10 mg Q12HR HARRISON Administration Oxycodone/Acetaminophen 2 tab 04/09/18 16:44 04/16/18 09:49 Percocet 5/325 Tab* PO 2 tab Q4H PRN Administration PAIN - SEVERE Oxycodone/Acetaminophen 1 tab 04/09/18 16:47 04/10/18 21:08 Percocet 5/325 Tab* PO 1 tab Q4H PRN Administration PAIN - MODERATE TO SEVERE Polyvinyl Alcohol 1 drop 04/09/18 16:47 04/10/18 21:06 Polyvinyl Alcohol 1.4% Opth* RIGHT EYE 1 drop Q2H PRN Administration DRY EYE Senna 2 tab 04/09/18 16:38 04/12/18 20:13 Senokot Tab* PO 2 tab BEDTIME PRN Administration CONSTIPATION Torsemide 10 mg 04/10/18 09:00 04/16/18 08:04 Demadex* PO 10 mg DAILY HARRISON Administration Warfarin Sodium 3 mg 04/11/18 17:00 04/15/18 17:39 Coumadin Tab(*) PO 3 mg DAILY@1700 HARRISON Administration Protocol Vital Signs: Vital Signs Temp Pulse Resp BP Pulse Ox 98.6 F 63 18 156/70 96 04/16/18 05:35 04/16/18 05:35 04/16/18 10:33 04/16/18 05:35 04/16/18 08:00 Lab Results: Laboratory Results - last 24 hr 04/15/18 04/15/18 04/15/18 10:17 11:43 16:47 POC Glucose (mg/dL) 249 H 162 H Lactate Dehydrogenase 204 Vitamin B12 826 04/15/18 04/16/18 20:48 07:23 POC Glucose (mg/dL) 120 H 123 H Lactate Dehydrogenase Vitamin B12 Exam: GEN: no acute distress. alert and appropriate LUNGS: Clear to auscultation bilaterally HEART: regular rate and rhythm ABDOMEN: + bowel sounds, soft, non-tender, non-distended EXTREMITIES: Right knee wound C/D/I. Erythema just about gone and any remaining is very dull. Edema in lower leg. NEUROLOGIC: BLE motor 5/5 with limited testing of right knee secondary to pain. Normal sensation. Assessment/Plan: 1. Right total knee arthroplasty: WBAT RLE. PT/OT. f/u with Dr. Caballero 2. Diabetes: Glimepiride/Metformin/Lantus/SSI. 3. CAD: ASA/Corgard 4. Hx of Bladder Cancer/Prostatic hypertrophy: Proscar 5. Non-occlusive DVT and h/o DVT in 2006: Heme/Onc consult with h/o lymphoma. Seen by Dr. Land Tuesday. Repeat doppler today. If thrombus is progressive consider d/c coumadin and start Xarelto. Otherwise, continue coumadin. 6. Advanced Directives: Full Code 7. Analgesia: Percocet prn. I d/w him d/c oxycontin completely.Continue prn percocet. 8. Dispo: Accepted to [facility] for Tuesday which is his preference. d/c tuesday. 04/16/18 10:57
--- NOTE | 2018-04-16 16:00 | RAD ---
INDICATION: Assess for progression of DVT. COMPARISON: April 14, 2018 TECHNIQUE: Rodriguez scale, color Doppler, and spectral analysis of the deep veins of the RIGHT lower extremity. Vessel compression, phasicity, and augmentation assessed. REPORT: Patent RIGHT common femoral, profunda femoral, and great saphenous vein at the saphenous femoral junction. Duplicated superficial femoral vein and popliteal vein. One of the superficial femoral veins and contiguous popliteal vein is patent. The second lumen of the duplicated superficial femoral-popliteal venous system demonstrates nonocclusive thrombosis. Patent paired posterior tibial and peroneal calf veins. IMPRESSION: Duplicated RIGHT superficial femoral popliteal venous system with nonocclusive thrombosis of one of the duplicated veins. Comparison with the April 14, 2018 exam is limited without gross change in magnitude of nonocclusive thrombosis however only one of the paired superficial femoral popliteal veins was imaged on the prior exam.
[2018-04-16 16:22] VITALS: BP 149/54
[2018-04-16] MEDS: Nadolol TAB* 40 MG PO SCH (17:38)
[2018-04-16] MEDS: Warfarin TAB(*) 3 MG PO SCH (17:38)
[2018-04-16] MEDS: Magnesium Hydroxide LIQ* 30 ML UDC PO PRN (19:04)
--- NOTE | 2018-04-16 21:58 | DS ---
CC: Dr. Pelayo; Dr. Melany Del Castillo; Dr. Caballero; [facility].* REHABILITATION DISCHARGE SUMMARY: DATE OF ADMISSION: 04/09/18 DATE OF ANTICIPATED DISCHARGE: To [facility] is 04/17/18. PRIMARY CARE PROVIDER: Dr. Pelayo. FRAME CATCHER/ONCOLOGIST: Dr. Melany Del Castillo. ORTHOPEDIC SURGEON: Dr. Caballero. REASON FOR ADMISSION: Right total knee replacement. HISTORY OF PRESENT ILLNESS: For full details of his acute hospitalization leading up to his admission, please see the note dictated by Dr. Cox on . REHABILITATION COURSE: During his time on the [facility], his knee became red and swollen. He was seen by Orthopedics and started on Keflex for cellulitis. He responded quite well to this treatment and completed a 5-day course at midnight on 04/16/18. He still has sutures in place and he is to follow up with Dr. Caballero this week for suture removal and reevaluation. He had significant amount of pain that was treated with Percocet. He was trialed on OxyContin briefly, but developed incontinence and some confusion. This was discontinued and he continued using Percocet on an as needed basis and this seemed to be best tolerated for him. Of note, urinalysis during the incontinence episodes was negative. He complained of swelling in his right leg, which he felt may be worse compared to what it chronically is, secondary to past lymph node dissection in his right groin. He does have history of non-Hodgkin's lymphoma. Doppler ultrasound of the right lower extremity on 04/14/18, showed non- occlusive thrombus at the adductor canal, popliteal vein, and proximal tibial veins. Hematology/Oncology was consulted. He was already therapeutic on Coumadin. A decision was made to repeat the ultrasound in 2 days and if it had not progressed, to continue on his Coumadin, which he seems to tolerate very well. If the DVT had progressed, then consideration should be given to using another anticoagulant such as Xarelto. Repeat ultrasound on 04/16/18 did not show any progression and he continued on coumadin. He will need to have followup with Dr. Melany Del Castillo after discharge regardless. During his time on the [facility], he participated with physical therapy. At the time of discharge, he was able to ambulate and transfer using a rolling walker. He needed cueing for safety. He is able to do stairs with 2 rails and demonstrated during his stay that he could do a flight of stairs, but was not consistently able to do this. Unfortunately, he has 25 stairs to get down into his apartment. He also participated well with occupational therapy and at the time of discharge, required minimal assistance for lower body dressing. He was supervised for upper body dressing, bathing, and toileting. Initially, he was going to be discharged to home, but he felt that he wanted a longer stay and additional assistance and was accepted to go to [facility] for subacute rehabilitation. He should be leaving on 04/17/18. DISCHARGE CONDITION: Good. DISCHARGE DIAGNOSES: 1. Status post right total knee replacement secondary to osteoarthritis. 2. Coronary artery disease. 3. Diabetes mellitus. 4. Deep venous thrombosis. 5. History of non-Hodgkin's lymphoma. 6. History of bladder cancer. 7. Spinal stenosis. 8. Sleep apnea with CPAP. 9. Cellulitis status post knee replacement. DISCHARGE MEDICATIONS: 1. Tylenol 650 mg q. 6 hours p.r.n. pain. 2. Artificial tears 1 drop right eye q. 2 hours p.r.n. 3. Aspirin 81 mg daily. 4. Cyclobenzaprine 10 mg t.i.d. p.r.n. 5. Docusate 100 mg b.i.d. 6. Proscar 5 mg daily. 7. Glimepiride 4 mg b.i.d. 8. Glargine insulin 15 units q.h.s. 9. Sliding scale Lispro insulin q.a.c. and q.h.s. 10. Milk of magnesia 30 mL q. 6 hours p.r.n. constipation. 11. Metformin 500 mg at 0800 and 1700. 12. Nadolol 20 mg daily. 13. Percocet 5/325 1 to 2 tablets q. 4 hours p.r.n. pain, maximum daily dose of 8, wean off as tolerated. 14. Senna 2 tablets q.h.s. p.r.n. constipation. 15. Torsemide 10 mg daily. 16. Warfarin at the time of this dictation is 3 mg q. p.m. 17. Hydrocortisone 1% cream, applied topically b.i.d. p.r.n. itching. DISCHARGE CONDITION: Good. DISCHARGE DISPOSITION: [facility] for subacute rehab. FOLLOWUP: 1. He needs to follow up with Dr. Caballero this week for suture removal. 2. Follow up with Dr. Pelayo in 1 to 2 weeks, his primary care provider. 3. Follow up with Dr. Melany Del Castillo in 1 to 2 weeks. [id number]/[facility] #: [id number] ALESSANDRA
[2018-04-16] MEDS: Insulin GLARGINE(*) 1 UNITS UNIT SUBCUT SCH (22:34)
[2018-04-16] MEDS: Cyclobenzaprine TAB* 10 MG PO PRN (23:14)
[2018-04-17] MEDS: oxyCODONE/Acetamin 5/325 MG* TAB PO PRN ×2 (05:54→12:24)
[2018-04-17] MEDS: Insulin LISPRO* 1 UNITS UNIT SUBCUT SCH ×2 (08:17→11:59)
[2018-04-17] MEDS: Artificial Tears* 15 ML BTL RIGHT EYE PRN (08:21)
[2018-04-17] MEDS: Docusate CAP* 100 MG PO SCH (08:21)
[2018-04-17] MEDS: Cyclobenzaprine TAB* 10 MG PO PRN (08:21)
[2018-04-17] MEDS: Torsemide TAB* 20 MG PO SCH (08:22)
[2018-04-17] MEDS: metFORMIN* 500 MG TAB PO SCH (08:22)
[2018-04-17] MEDS: Finasteride TAB* 5 MG PO SCH (08:22)
[2018-04-17] MEDS: GLIMEPIRIDE 4 MG PO SCH (08:22)
[2018-04-17] MEDS: Aspirin EC TAB* 81 MG TAB.EC PO SCH (08:22)
[2018-04-17] MEDS: Hydrocortisone 1% CREAM* 30 GM TUBE TOPICAL SCH (09:01)
[2018-04-17 09:03] LABS: ABS Basophils 0.1 10^3/ul (0-0.2); ABS Eosinophils 0.4 10^3/ul (0-0.6); ABS Lymphocytes 1.2 10^3/ul (1.0-4.8); ABS Monocytes 0.7 10^3/ul (0-0.8); ABS Neutrophils 5.2 10^3/ul (1.5-7.7); ABS Nucleated RBC 0 10^3/ul; Eosinophil % 4.8 % (0-6); Hematocrit 31 % (42-52); Hemoglobin 10.3 g/dl (14.0-18.0); Lymphocyte % 15.8 % (25-47); Mean Corpuscular HGB Conc 34 g/dl (31-36); Mean Corpuscular Hemoglobin 32 pg (27-31); Mean Corpuscular Volume 95 fL (80-94); Mean Platelet Volume 7.1 um3 (7.4-10.4); Nucleated Red Blood Cells % 0; Platelet Count 569 10^3/ul (150-450); Red Blood Count 3.23 10^6/ul (4.00-5.40); Red Cell Distribution Width 15 % (10.5-15); White Blood Count 7.5 10^3/ul (3.5-10.8)
[2018-04-17 09:07] LABS: INR 3.08 (0.77-1.02)
[2018-04-17 09:18] LABS: EGFR Non-African American 82.2 (>60)
== END 2018-04-17 12:50 | DRG 560 ==
LOC: PMRU 16:35
PROVIDERS: ADMIT Physical Medicine & Rehabilitation; ATTEND Physical Medicine & Rehabilitation
PROC: F07Z5ZZ Bed Mobility Treatment (ICD-10-PCS; principal; 2018-04-09)
PROC: F07Z9ZZ Gait Training/Functional Ambulation Treatment (ICD-10-PCS; 2018-04-09)
PROC: F07Z8ZZ Transfer Training Treatment (ICD-10-PCS; 2018-04-09)
PROC: F08Z0ZZ Bathing/Showering Techniques Treatment (ICD-10-PCS; 2018-04-09)
PROC: F08Z1ZZ Dressing Techniques Treatment (ICD-10-PCS; 2018-04-09)
PROC: F08Z3ZZ Feeding/Eating Treatment (ICD-10-PCS; 2018-04-09)
DX: Z47.1 Aftercare following joint replacement surgery (principal); I82.431 Acute embolism and thrombosis of right popliteal vein; I82.441 Acute embolism and thrombosis of right tibial vein; L03.115 Cellulitis of right lower limb; I42.9 Cardiomyopathy, unspecified; I82.531 Chronic embolism and thrombosis of right popliteal vein; I82.541 Chronic embolism and thrombosis of right tibial vein; Z96.651 Presence of right artificial knee joint; I11.0 Hypertensive heart disease with heart failure; I50.9 Heart failure, unspecified; I25.10 Atherosclerotic heart disease of native coronary artery without angina pectoris; E11.9 Type 2 diabetes mellitus without complications; M48.00 Spinal stenosis, site unspecified; G47.30 Sleep apnea, unspecified; M10.9 Gout, unspecified; N40.0 Benign prostatic hyperplasia without lower urinary tract symptoms; D53.9 Nutritional anemia, unspecified; Z96.652 Presence of left artificial knee joint; Z85.72 Personal history of non-Hodgkin lymphomas; Z85.51 Personal history of malignant neoplasm of bladder; Z95.1 Presence of aortocoronary bypass graft; Z95.5 Presence of coronary angioplasty implant and graft; Z79.01 Long term (current) use of anticoagulants; Z79.82 Long term (current) use of aspirin; Z79.4 Long term (current) use of insulin; Z79.899 Other long term (current) drug therapy; Z88.0 Allergy status to penicillin; Z88.8 Allergy status to other drugs, medicaments and biological substances; Z82.49 Family history of ischemic heart disease and other diseases of the circulatory system
CPT/HCPCS: 36415; 80053; 81003; 82607; 83615; 85025; 85045; 85610; 86880; 99223; A9270-GY

== ENCOUNTER 2020-08-19 18:04 | Inpatient (IN) ==
[2020-08-19 19:09] LABS: ABS Basophils 0.1 10^3/ul (0-0.2); ABS Eosinophils 0.2 10^3/ul (0-0.6); ABS Lymphocytes 2.1 10^3/ul (1.0-4.8); ABS Monocytes 0.7 10^3/ul (0-0.8); ABS Neutrophils 3.3 10^3/ul (1.5-7.7); Eosinophil % 3.5 %; Hematocrit 45 % (42-52); Hemoglobin 15.3 g/dL (14.0-18.0); Lymphocyte % 32.7 %; Mean Corpuscular HGB Conc 34 g/dL (31-36); Mean Corpuscular Hemoglobin 32 pg (27-31); Mean Corpuscular Volume 95 fL (80-94); Mean Platelet Volume 7.9 fL (7.4-10.4); Nucleated Red Blood Cells % 0.1; Platelet Count 269 10^3/uL (150-450); Red Blood Count 4.75 10^6 /uL (4.18-5.48); Red Cell Distribution Width 15 % (10-15); White Blood Count 6.4 10^3/uL (3.5-10.8)
[2020-08-19 19:23] LABS: INR 1.52 (0.82-1.09)
[2020-08-19 19:28] LABS: Albumin 4.1 g/dL (3.2-5.2); Albumin/Globulin Ratio 1.3 (1-3); BUN/Creatinine Ratio 20.2 (8-20); Calcium 9.5 mg/dL (8.6-10.3); EGFR African American 67.5 (>60); EGFR Non-African American 55.8 (>60); Globulin 3.2 g/dL (2-4); Potassium 4.2 mmol/L (3.5-5.0); Total Bilirubin 0.3 mg/dL (0.2-1.0); Total Protein 7.3 g/dL (6.4-8.9)
[2020-08-19 19:29] LABS: Troponin I 0.01 ng/mL (<0.03)
[2020-08-19] MEDS ORDERED: Acetaminop/Codeine 300mg/30mg TAB PO PRN (21:49)
[2020-08-19] MEDS ORDERED: Al Hydrox/Mg Hydrox/Simet LIQ 30 ML UDC PO PRN (22:01)
[2020-08-19] MEDS ORDERED: Heparin - STEMI 5,000 UNITS/ML 1 ml VIAL IV ONE (22:32)
[2020-08-19] MEDS ORDERED: Heparin DRIP 25,000 UNITS BAG 25,000 UNITS/500 ML BAG IV SCH (22:45)
[2020-08-19] MEDS ORDERED: Heparin 5000 UNITS/ML 1 mL VIAL IV SCH (23:00)
[2020-08-20] MEDS ORDERED: CMC:Rosuvastatin 20 mg TAB (NF) PO SCH
[2020-08-20 00:02] LABS: EGFR African American 66.3 (>60); EGFR Non-African American 54.8 (>60)
[2020-08-20 00:05] LABS: Troponin I 0.01 ng/mL (<0.03)
[2020-08-20] MEDS: Insulin GLARGINE 100 un/ml 10 ml VIAL SUBCUT SCH ×2 (00:46→20:39)
[2020-08-20] MEDS ORDERED: Rosuvastatin 20 mg TAB (NF) PO SCH (01:00)
[2020-08-20] MEDS ORDERED: Dextrose 50% Syringe 50 ml 25 GM/50 ML SYRINGE IV PUSH PRN (05:00)
[2020-08-20 07:39] LABS: ABS Eosinophils 0.1 10^3/ul (0-0.6); ABS Monocytes 0.2 10^3/ul (0-0.8); ABS Neutrophils 4.4 10^3/ul (1.5-7.7); Hematocrit 42 % (42-52); Hemoglobin 13.9 g/dL (14.0-18.0); Lymphocyte % 18.5 %; Mean Corpuscular HGB Conc 33 g/dL (31-36); Mean Corpuscular Hemoglobin 31 pg (27-31); Mean Corpuscular Volume 95 fL (80-94); Mean Platelet Volume 8.3 fL (7.4-10.4); Platelet Count 258 10^3/uL (150-450); Red Blood Count 4.43 10^6 /uL (4.18-5.48); Red Cell Distribution Width 15 % (10-15); White Blood Count 5.7 10^3/uL (3.5-10.8)
[2020-08-20 07:47] LABS: BUN/Creatinine Ratio 20.3 (8-20); Calcium 8.8 mg/dL (8.6-10.3); EGFR African American 65.1 (>60); EGFR Non-African American 53.8 (>60); Potassium 4.3 mmol/L (3.5-5.0)
[2020-08-20] MEDS ORDERED: Perflutren Lipid Microsphere 3 ML VIAL ONE (08:12)
[2020-08-20] MEDS ORDERED: Regadenoson 0.4 MG/5 ML SYRINGE ONE (12:07)
[2020-08-20] MEDS ORDERED: Aminophylline 25 MG/ML VIAL ONE (12:08)
[2020-08-21] MEDS ORDERED: Aspirin EC 81 mg TAB.EC (enteric coated) PO SCH (09:00)
[2020-08-21] MEDS ORDERED: ROSUVASTATIN 10 MG PO SCH (09:00)
[2020-08-21] MEDS: CANAGLIFLOZIN 300 MG PO SCH ×2 (09:35→14:19)
[2020-08-21 12:44] VITALS: BP 134/63
[2020-08-21] MEDS ORDERED: Insulin GLARGINE 100 un/ml 10 ml VIAL SUBCUT SCH (21:00)
== END 2020-08-21 15:15 | disposition home or self-care (01) | DRG 311 ==
LOC: ED 18:04 → MEDTELE 21:41
PROVIDERS: ADMIT Internal Medicine; ATTEND Internal Medicine